=== PATIENT | female | born 1995 | race Caucasian/White ===

== ENCOUNTER 2017-09-18 18:40 | Emergency (ER) | payer OTHER, MEDICAID, SELFPAY ==
[2017-09-18 18:43] VITALS: BP 122/83; PULSE 92; RESP 14; TEMP 36.5; O2SAT 100
--- NOTE | 2017-09-18 18:46 | DI.RAD.S_ITS ---
PROCEDURE: XR ANKLE RT MIN 3V INDICATIONS: twisting injury, lateral ankle pain TECHNIQUE: 3 views of the ankle were acquired. COMPARISON: None. FINDINGS: Bones: No fractures or dislocations. Ankle mortise is normally aligned. No suspicious bony lesions. Soft tissues: No tibiotalar joint effusion. Achilles tendon appears normal. IMPRESSION: Source of lateral ankle pain is not seen. Dictated by: Candelario Scott M.D. on 09/18/2017 at 19:07 Approved by: Candelario Scott M.D. on 09/18/2017 at 19:07
--- NOTE | 2017-09-18 19:04 | ED.LOWEXIN ---
HPI - Extremity Injury (Lower) <DUKE Chairez - Last Filed: 09/18/17 23:39> General Chief Complaint: Extremity Injury, Lower Stated Complaint: RT ANKLE INJURY Time Seen by Provider: 09/18/17 19:04 History of Present Illness HPI Narrative: 22-year-old female here for complaint of pain into her right ankle for the last couple of days. She states that [place] and was walking to the restroom area when she rolled her right ankle causing pain into the lateral aspect of the right ankle. She reports some swelling to the lateral malleolus area. She denies any direct trauma to the ankle. She does report increased pain with ambulation and weight-bearing. No other injuries or concerns or complaints. MD complaint: ankle injury Related Data Home Medications Medication Instructions Recorded Confirmed Cymbalta 09/18/17 bupropion HCl [Wellbutrin XL] 300 mg PO QAM 09/18/17 09/18/17 pregabalin [Lyrica] 09/18/17 Allergies Allergy/AdvReac Type Severity Reaction Status Date / Time ibuprofen AdvReac Verified 09/18/17 18:46 Review of Systems <DUKE Chairez - Last Filed: 09/18/17 23:39> Constitutional Denies chills, Denies fatigue, Denies fever(s), Denies lethargy and Denies weakness Eyes Denies change in vision, Denies eye discharge, Denies irritation and Denies loss of vision ENT Ears, Nose, Mouth, and Throat: Denies change in voice, Denies neck pain and Denies sore throat Cardiovascular Denies dyspnea and Denies dyspnea on exertion Respiratory Denies cough, Denies dyspnea, Denies dyspnea on exertion and Denies wheezing Gastrointestinal Gastrointestinal: Denies abdominal pain, Denies change in bowel habits, Denies diarrhea, Denies nausea and Denies vomiting Genitourinary Denies hematuria, Denies flank pain, Denies urinary incontinence and Denies urinary urgency Musculoskeletal Denies neck pain Comments: Right ankle pain Integumentary/Breasts Denies pruritus, Denies erythema, Denies rash and Denies wounds Neurologic Denies confusion, Denies loss of vision and Denies weakness Psychiatric Denies anxiety, Denies confusion, Denies depression, Denies homicidal ideation and Denies suicidal ideation Endocrine Denies fatigue and Denies flushing Hematologic/Lymphatic Denies easy bruising Allergic/Immunologic Denies wheezing Exam <DUKE Chairez - Last Filed: 09/18/17 23:39> Initial Vital Signs Initial Vital Signs: Vital Signs Temperature 97.7 F 09/18/17 18:43 Pulse Rate 92 H 09/18/17 18:43 Respiratory Rate 14 09/18/17 18:43 Blood Pressure 122/83 H 09/18/17 18:43 Pulse Oximetry 100 09/18/17 18:43 Const General: cooperative and well developed Nutritional Appearance: well nourished Orientation: alert, awake, oriented x3 and not confused [facility] Mouth: oral mucosae normal and moist mucous membranes Eyes Conjunctivae: conjunctivae normal Sclera: sclerae normal Pupils: PERRL EOM: EOM intact bilaterally Resp Effort & Inspection: normal respiratory effort, able to speak in complete sentences, no respiratory distress and no use of accessory muscles Auscultation: clear to auscultation bilaterally, no rales, no rhonchi and no wheezes Cardio Rate: regular rate Rhythm: regular rhythm Heart Sounds: no click, no gallops, no murmurs and no rubs Pulses: normal peripheral pulses Skin General: no rashes or lesions noted, No jaundice and No petechiae Extrem Other: Right ankle with slight swelling to the lateral malleolus. No deformities. No ecchymosis. Distal sensation is intact. Distal range of motion is intact. Distal pulses are intact. <Dawit Ramos MD - Last Filed: 10/06/17 09:35> Initial Vital Signs Initial Vital Signs: Vital Signs Temperature 97.7 F 09/18/17 18:43 Pulse Rate 92 H 09/18/17 18:43 Respiratory Rate 14 09/18/17 18:43 Blood Pressure 122/83 H 09/18/17 18:43 Pulse Oximetry 100 09/18/17 18:43 Course <DUKE Chairez - Last Filed: 09/18/17 23:39> Orders Ordered: ED Orders 09/18/17 18:46 XR ankle RT min 3V Stat Vital Signs - 8 hr 09/18/17 18:43 09/18/17 20:25 Temperature 97.7 F Pulse Rate 92 H 92 H Respiratory Rate 14 18 Blood Pressure 122/83 H Blood Pressure [Left Arm] 118/72 Pulse Oximetry 100 97 <Dawit Ramos MD - Last Filed: 10/06/17 09:35> Orders Ordered: ED Orders 09/18/17 18:46 XR ankle RT min 3V Stat Vital Signs - 8 hr 09/18/17 18:43 09/18/17 20:25 Temperature 97.7 F Pulse Rate 92 H 92 H Respiratory Rate 14 18 Blood Pressure 122/83 H Blood Pressure [Left Arm] 118/72 Pulse Oximetry 100 97 [facility] - Extremity Injury (Lower) <DUKE Chairez - Last Filed: 09/18/17 23:39> Imaging Data ankle: Radiologist's impression: Signed Patient: TAMMY MIRANDA MR#: [id number] : 1995 Acct:[id number] Age/Sex: 22 / F Date of Service: 09/18/17 Loc: ED Accession Number: [id number] Procedure: XR ankle RT min 3V Ordering Provider: Dawit Ramos M.D. PROCEDURE: XR ANKLE RT MIN 3V INDICATIONS: twisting injury, lateral ankle pain TECHNIQUE: 3 views of the ankle were acquired. COMPARISON: None. FINDINGS: Bones: No fractures or dislocations. Ankle mortise is normally aligned. No suspicious bony lesions. Soft tissues: No tibiotalar joint effusion. Achilles tendon appears normal. IMPRESSION: Source of lateral ankle pain is not seen. Dictated by: Candelario Scott M.D. on 09/18/2017 at 19:07 MDM Narrative Medical decision making narrative: X-ray of the right ankle was obtained and was negative for any acute findings. Signs and symptoms presents as sprain to the right ankle. She is placed in a gel stirrup splint for comfort and support along with crutches for nonweightbearing. [id number] Tylenol as needed for any discomfort. Ice and elevation to help with any swelling. Follow up with primary care provider. Return emergency room for any worsening symptoms. Discharge Plan Departure Patient Disposition: Home, Self-Care Clinical Impression: Ankle sprain and strain Discharge Date/Time: 09/18/17 20:20 Interventions: ED Discharge Assessment Last Done: 09/18/17 20:46 Instructions: Ankle Sprain Activity Restrictions/Additional Instructions: X-ray the right ankle was obtained was negative for any acute fractures. Signs and symptoms presents sprain into the right ankle. You have been placed in a splint for comfort and support along with crutches for nonweightbearing use as directed. Use [id number] Tylenol as needed for any discomfort. Ice and elevation to help with swelling. Follow up with her primary care provider. Return emergency room for any worsening symptoms. Prescriptions: No Action bupropion HCl [Wellbutrin XL] 300 mg Tablet Extended Release 24 Hr 300 mg PO QAM RF: 0 pregabalin [Lyrica] 75 mg Capsule RF: 0 Cymbalta RF: 0 Referrals: [facility] [Provider Group] <Dawit Ramos MD - Last Filed: 10/06/17 09:35> Sign Out Provider Sign Out Attestation: The PA/[employer] functioned independently for the care of this pt, I was available, but not asked to participate in care. I am unable to determine appropriateness of management without personally examining the pt.
[2017-09-18 20:25] VITALS: BP 118/72; PULSE 92; RESP 18; O2SAT 97
== END 2017-09-18 20:20 | disposition home or self-care (01) ==
PROVIDERS: Emergency Provider Nurse Practitioner Family
DX: S93.401A Sprain of unspecified ligament of right ankle, initial encounter (principal); W18.43XA Slipping, tripping and stumbling without falling due to stepping from one level to another, initial encounter
CPT/HCPCS: 29540; 73610; 99282; 99283

== ENCOUNTER 2018-03-06 22:16 | Emergency (ER) | payer OTHER, MEDICAID, SELFPAY ==
[2018-03-06 22:25] VITALS: BP 124/76; PULSE 99; RESP 15; TEMP 36.6; O2SAT 100; BMI 41.1
[2018-03-06] MEDS: HYDROMORPHONE 2 MG INJ 1 MG IM (23:05)
--- NOTE | 2018-03-06 23:07 | ED_ITS ---
HPI - Abdominal Pain General Chief Complaint: Abdominal Pain Stated Complaint: Constipated (1 Week) Time Seen by Provider: 03/06/18 22:22 Source: patient Mode of arrival: ambulatory Limitations: no limitations History of Present Illness HPI narrative: Patient is a 23-year-old female with a history of constipation. She states that she has had to be disimpacted in the past she states she has not had a bowel movement approximately 1 week. Has tried enemas and suppositories at home. Does have the sensation like she wants to go the bathroom and abdominal pain. No urinary symptoms. Related Data Home Medications Medication Instructions Recorded Confirmed Cymbalta 09/18/17 bupropion HCl [Wellbutrin XL] 300 mg PO QAM 09/18/17 09/18/17 pregabalin [Lyrica] 09/18/17 Allergies Allergy/AdvReac Type Severity Reaction Status Date / Time ibuprofen AdvReac Verified 03/06/18 22:25 Review of Systems Constitutional Denies headache(s) ENT Ears, Nose, Mouth, and Throat: Denies headache(s) Cardiovascular Denies chest pain and Denies dyspnea Respiratory Denies dyspnea Gastrointestinal Gastrointestinal: Reports abdominal pain, Reports bloating, Reports constipation , Denies diarrhea, Denies nausea and Denies vomiting Genitourinary Denies dysuria and Denies pelvic pain Integumentary/Breasts Denies rash Neurologic Denies headache(s) Hematologic/Lymphatic Denies easy bleeding and Denies easy bruising PFSH Medical History Fibromyalgia (Acute) Social History Smoking Status: Never smoker Exam Initial Vital Signs Initial Vital Signs: Vital Signs Temperature 97.8 F 03/06/18 22:25 Pulse Rate 99 H 03/06/18 22:25 Respiratory Rate 15 03/06/18 22:25 Blood Pressure 124/76 03/06/18 22:25 Pulse Oximetry 100 03/06/18 22:25 Const General: cooperative, healthy appearing, comfortable, well developed, well groomed and No acute distress Orientation: alert, awake and oriented x3 HENMT Head: normal to inspection and normocephalic Resp Effort & Inspection: normal respiratory effort Auscultation: clear to auscultation bilaterally Cardio Rate: regular rate Rhythm: regular rhythm GI Inspection: non-distended Palpation: soft, No firm and tender (Generalized) Rectal Exam: visual inspection normal, normal sphincter tone, No hemorrhoids, No lesions and No mass Skin Lesions: no lesions Rashes: no rashes Neuro General: alert, awake and oriented x3 Extrem General: normal to inspection and capillary refill normal Psych Appearance: grossly normal and well kempt Course Orders Ordered: Discontinued Medications Hydromorphone HCl (Dilaudid) 1 mg IM Q4H PRN PRN Reason: Pain, Severe (7-10) Last Admin: 03/06/18 23:05 Dose: 1 mg Mineral Oil (Mineral Oil Enema) 1 each MS NOW ONE Stop: 03/06/18 23:37 Last Admin: 03/06/18 23:30 Dose: 1 each Vital Signs - 8 hr 03/06/18 22:25 03/07/18 00:52 Temperature 97.8 F Pulse Rate 99 H 90 Respiratory Rate 15 16 Blood Pressure 124/76 109/44 L Pulse Oximetry 100 99 MDM - Abdominal Pain MDM Narrative Medical decision making narrative: Patient has a relatively benign abdominal exam. Unable to manually disimpact because the stool was too high in the rectal vault. She was given a mineral oil enema. Patient was able to have a bowel movement here in the ER. She states she felt much better. We did discuss home treatment of her constipation. Will hold on further workup for now. She was given return precautions. She expressed understanding and agreement with plan. Discharge Plan Departure Patient Disposition: Home Clinical Impression: Constipation Discharge Date/Time: 03/07/18 00:58 Interventions: ED Discharge Assessment Last Done: 03/07/18 00:52 Instructions: Constipation Activity Restrictions/Additional Instructions: Recommend that you keep your appointment with your primary doctor later this week. I do recommend that you start a fiber supplement. Return to the emergency department for any new or worsening symptoms Prescriptions: No Action bupropion HCl [Wellbutrin XL] 300 mg Tablet Extended Release 24 Hr 300 mg PO QAM RF: 0 pregabalin [Lyrica] 75 mg Capsule RF: 0 Cymbalta RF: 0
[2018-03-06] MEDS: MINERAL OIL 1 EACH ENEMA PR (23:30)
--- NOTE | 2018-03-07 00:19 | PC.NURSE ---
patient reports a large BM and some relief. provider aware and no new orders at this time.
[2018-03-07 00:52] VITALS: BP 109/44; PULSE 90; RESP 16; O2SAT 99
== END 2018-03-07 00:58 | disposition home or self-care (01) ==
PROVIDERS: Emergency Provider Emergency Medicine
DX: K59.00 Constipation, unspecified (principal)
CPT/HCPCS: 96372; 99283; J1170

== ENCOUNTER 2018-05-02 14:45 | Emergency (ER) | payer OTHER, MEDICAID, SELFPAY ==
[2018-05-02 14:50] VITALS: BP 105/71; PULSE 94; RESP 15; TEMP 36.2; O2SAT 97; BMI 40.2
== END 2018-05-02 15:35 | disposition left against medical advice (07) ==
PROVIDERS: Emergency Provider Emergency Medicine
DX: R10.9 Unspecified abdominal pain (principal)
CPT/HCPCS: 99281; 99282

== ENCOUNTER 2019-12-07 14:27 | Emergency (ER) | payer OTHER, MEDICAID, SELFPAY ==
--- NOTE | 2019-12-07 14:46 | ED.FEMALEGU ---
HPI - Female Genitourinary General Chief complaint: Urogenital-Female Stated complaint: UTI COUPLE DAYS-1 WEEK Time Seen by Provider: 12/07/19 14:30 Source: patient and family Mode of arrival: Ambulatory Limitations: no limitations History of Present Illness HPI Narrative: 24-year-old female former smoker with noncontributory medical history presents with her family in the chief complaint of multiple days of urinary frequency, urgency, burning with urination. She states the symptoms are consistent with prior episodes of urinary tract infection. She denies any vaginal bleeding or discharge. She denies any fever, chills, nausea, vomiting or back pain. MD Complaint: dysuria and UTI Onset (ago): day(s) Female Urogenital Radiation: Suprapubic Severity: moderate Quality: Aching Duration: constant Exacerbating factors: urination Urinary symptoms: Dysuria, Foul Smelling Urine, Frequency and Urgency Sexual activity: No Patient : No Related Data Home Medications Medication Instructions Recorded Confirmed Cymbalta 09/18/17 bupropion HCl [Wellbutrin XL] 300 mg PO QAM 09/18/17 09/18/17 pregabalin [Lyrica] 09/18/17 Previous Rx's Medication Instructions Recorded sulfamethoxazole-trimethoprim 1 tab PO BID 7 Days #14 tab 12/07/19 [Bactrim DS] Allergies Allergy/AdvReac Type Severity Reaction Status Date / Time ibuprofen AdvReac Verified 12/07/19 14:54 Review of Systems Constitutional Constitutional: Denies chills, Denies fatigue, Denies fever(s), Denies frequent falls, Denies lethargy and Denies weakness Eyes Eyes: Denies change in vision, Denies eye discharge, Denies irritation and Denies loss of vision ENT Ears, Nose, Mouth, and Throat: Denies change in voice, Denies dizziness, Denies neck pain, Denies sore throat and Denies throat swelling Cardiovascular Cardiovascular: Denies chest pain, Denies irregular heart rhythm, Denies lightheadedness, Denies palpitations, Denies dyspnea, Denies dyspnea on exertion and Denies orthopnea Respiratory Respiratory: Denies cough, Denies dyspnea, Denies dyspnea on exertion and Denies wheezing Gastrointestinal Gastrointestinal: Denies abdominal pain, Denies change in bowel habits, Denies diarrhea, Denies nausea and Denies vomiting Genitourinary Genitourinary: Reports dysuria Genitourinary: Reports dysuria Musculoskeletal Musculoskeletal: Denies neck pain and Denies numbness Integumentary/Breasts Skin/Breast: Denies pruritus, Denies erythema, Denies rash and Denies wounds Neurologic Neurologic: Denies behavioral changes, Denies confusion, Denies dizziness, Denies frequent falls, Denies loss of vision, Denies numbness and Denies weakness Psychiatric Psychiatric: Denies anxiety, Denies behavioral changes, Denies confusion, Denies depression, Denies homicidal ideation and Denies suicidal ideation Endocrine Endocrine: Denies fatigue, Denies flushing and Denies palpitations Hematologic/Lymphatic Hematologic/Lymphatic: Denies easy bruising Allergic/Immunologic Allergic/Immunologic: Denies urticaria, Denies throat swelling and Denies wheezing Patient History Medical History Fibromyalgia (Acute) alcohol intake frequency: holidays/special occasions only Substance Use Type: does not use Exam Narrative Exam Narrative: GENERAL: [24] year old patient appears stated age. Well-nourished, well-developed patient, in mild distress. HEAD: Atraumatic. Normocephalic. EYES: Pupils equal round and reactive. Extraocular motions intact. No scleral icterus. No injection or drainage. ENT: Nose without bleeding, purulent drainage. Throat without erythema, tonsillar hypertrophy or exudate. Airway patent. NECK: Trachea midline. Non tender CARDIOVASCULAR: Regular rate and rhythm without murmurs, gallops, or rubs. RESPIRATORY: Clear to auscultation. Breath sounds equal bilaterally. No wheezes, rales, or rhonchi. GASTROINTESTINAL: Abdomen soft, non-tender, nondistended. EXTREMITIES: No edema or joint tenderness. BACK: Nontender without deformity or crepitance. No flank tenderness. NEURO: AOx3. SKIN: No rash or erythema of visible areas Initial Vital Signs Initial Vital Signs: Vital Signs Temperature 98.1 F 12/07/19 14:50 Pulse Rate 92 H 12/07/19 14:50 Respiratory Rate 16 12/07/19 14:50 Blood Pressure 119/76 12/07/19 14:50 Pulse Oximetry 96 12/07/19 14:50 Course Orders Ordered: ED Orders 12/07/19 14:35 Urine Culture Stat Urine Microscopic Stat Vital Signs Vital signs: Vital Signs - 8 hr 12/07/19 14:50 Temperature 98.1 F Pulse Rate 92 H Respiratory Rate 16 Blood Pressure 119/76 Pulse Oximetry 96 MDM - Female Genitourinary Lab Data Labs: Lab Results 12/07/19 Range/Units 14:35 Urine RBC 0-1/hpf (0-5/HPF) Urine WBC 10-30/hpf H (0-5/HPF) Ur Squamous Epith Cells 0-1 /hpf (0-5/HPF) Urine Bacteria Many (>30) H (None) Ur Culture Indicated? Specimen cultured Point of Care Testing Test Results Negative Urine Dip Bedside Urine Glucose Negative Bedside Urine Bilirubin - Negative Bedside Urine Ketone - Negative Urine Specific [place] 1.015 Bedside Urine Occult Blood +/- Bedside Urine pH 6.0 Bedside Urine Protein - Negative Bedside Urine Urobilinogen - Negative Bedside Urine Nitrite - Negative Bedside Urine Leukocytes ++ 125 Esterase Discharge Plan Departure Patient Disposition: Home Clinical Impression: Urinary tract infection Qualifiers: Urinary tract infection type: acute cystitis Hematuria presence: with hematuria Qualified Code(s): N30.01 - Acute cystitis with hematuria Instructions: DI for Urinary Tract Infection (UTI) Activity Restrictions/Additional Instructions: *You have been diagnosed with [acute UTI ] *What to do: *Take medications as directed *Follow up with your primary care provider in 2-3 days, call for an appointment. Let them know you were seen in the Emergency Department and that we ask that you be seen in follow up *Return to ER if you should have any new, worsening or concerning symptoms Prescriptions: New sulfamethoxazole-trimethoprim [Bactrim DS] 800-160 mg tablet 1 tab PO BID 7 Days Qty: 14 RF: 0 No Action bupropion HCl [Wellbutrin XL] 300 mg Tablet Extended Release 24 Hr 300 mg PO QAM RF: 0 pregabalin [Lyrica] 75 mg Capsule RF: 0 Cymbalta RF: 0
[2019-12-07 14:50] VITALS: BP 119/76; PULSE 92; RESP 16; TEMP 36.7; O2SAT 96; BMI 47.5
[2019-12-07 15:07] LABS: Bacteria Urine Many (>30); Culture Indicated Urine Specimen Cultured; RBC Urine 0-1/HPF (0-5/HPF); Squamous Epithelial Cell Urine 0-1 /HPF (0-5/HPF); WBC Urine 10-30/HPF (0-5/HPF)
== END 2019-12-07 15:30 | disposition home or self-care (01) ==
PROVIDERS: Emergency Provider Emergency Medicine
DX: N30.01 Acute cystitis with hematuria (principal)
CPT/HCPCS: 81003; 81015; 81025; 87077; 87086; 87186; 99282

== ENCOUNTER 2019-12-21 23:26 | Emergency (ER) | payer OTHER, MEDICAID, SELFPAY ==
[2019-12-21 23:42] VITALS: BP 121/71; PULSE 95; RESP 18; TEMP 37; O2SAT 97; BMI 47.5
[2019-12-21 23:57] LABS: RBC Urine None Seen (0-5/HPF)
[2019-12-22] MEDS: TRIMETH/SULFA 160/800 (DS) TABLET 1 TAB PO
--- NOTE | 2019-12-22 00:01 | ED_ITS ---
HPI - Female Genitourinary General Chief complaint: Urogenital-Female Stated complaint: states UTI Time Seen by Provider: 12/21/19 23:32 Source: patient Mode of arrival: Ambulatory Limitations: no limitations History of Present Illness HPI Narrative: 24-year-old female smoker with noncontributory history presents with a chief complaint of urinary frequency, urgency and burning over the past day or 2. She denies systemic findings such as back pain, fever, chills nor nausea or vomiting. She denies any vaginal bleeding or discharge and states she is not . She denies other symptoms such as chest pain, shortness of breath or cough. MD Complaint: dysuria and UTI Onset (ago): day(s) Location: suprapubic Severity: mild Quality: Burning Duration: constant Relieving factors: none Exacerbating factors: urination Urinary symptoms: Dysuria, Frequency and Urgency Patient : No Associated symptoms: denies other symptoms Related Data Home Medications Medication Instructions Recorded Confirmed Cymbalta 09/18/17 bupropion HCl [Wellbutrin XL] 300 mg PO QAM 09/18/17 09/18/17 pregabalin [Lyrica] 09/18/17 Previous Rx's Medication Instructions Recorded fluconazole 150 mg PO Q3D #2 tab 12/21/19 sulfamethoxazole-trimethoprim 1 tab PO BID 5 Days #10 tab 12/21/19 [Bactrim DS] Allergies Allergy/AdvReac Type Severity Reaction Status Date / Time ibuprofen AdvReac Verified 12/07/19 14:54 Review of Systems Constitutional Constitutional: Denies chills, Denies fatigue, Denies fever(s), Denies frequent falls, Denies lethargy and Denies weakness Eyes Eyes: Denies change in vision, Denies eye discharge, Denies irritation and Denies loss of vision ENT Ears, Nose, Mouth, and Throat: Denies change in voice, Denies dizziness, Denies neck pain, Denies sore throat and Denies throat swelling Cardiovascular Cardiovascular: Denies chest pain, Denies irregular heart rhythm, Denies lightheadedness, Denies palpitations, Denies dyspnea, Denies dyspnea on exertion and Denies orthopnea Respiratory Respiratory: Denies cough, Denies dyspnea, Denies dyspnea on exertion and Denies wheezing Gastrointestinal Gastrointestinal: Denies abdominal pain, Denies change in bowel habits, Denies diarrhea, Denies nausea and Denies vomiting Genitourinary Genitourinary: Reports as per HPI and Reports dysuria Genitourinary: Reports as per HPI and Reports dysuria Musculoskeletal Musculoskeletal: Denies neck pain and Denies numbness Integumentary/Breasts Skin/Breast: Denies pruritus, Denies erythema, Denies rash and Denies wounds Neurologic Neurologic: Denies behavioral changes, Denies confusion, Denies dizziness, Denies frequent falls, Denies loss of vision, Denies numbness and Denies weakness Psychiatric Psychiatric: Denies anxiety, Denies behavioral changes, Denies confusion, Denies depression, Denies homicidal ideation and Denies suicidal ideation Endocrine Endocrine: Denies fatigue, Denies flushing and Denies palpitations Hematologic/Lymphatic Hematologic/Lymphatic: Denies easy bruising Allergic/Immunologic Allergic/Immunologic: Denies urticaria, Denies throat swelling and Denies wheezing Patient History Medical History Fibromyalgia (Acute) alcohol intake frequency: holidays/special occasions only Substance Use Type: does not use Exam Narrative Exam Narrative: GEN: AOx3 and in mild distress EYES: Pupils are equal, round, and reactive to light and accommodation. Extraoccular muscles are intact bilaterally. There is no subconjunctival hemorrhage or exudate. CHEST: Lungs are clear to auscultation bilaterally and free of wheezes, rales, or rhonchi. Heart rate is regular rhythm, there are no murmurs, clicks, rubs, or gallops. There is no chest wall tenderness. ABD: Abdomen is soft and nontender. There is no guarding or rebound. Bowel sounds are normal in all 4 quadrants. There is no mass or organomegaly. EXT: Full painless ROM of all extremities with no loss of sensation or strength. SKIN: Warm, pink, and dry. No erythema or rash Initial Vital Signs Initial Vital Signs: Vital Signs Temperature 98.6 F 12/21/19 23:42 Pulse Rate 95 H 12/21/19 23:42 Respiratory Rate 18 12/21/19 23:42 Blood Pressure 121/71 12/21/19 23:42 Pulse Oximetry 97 10 23:42 Course Orders Ordered: ED Orders 12/21/19 23:30 Urine Culture Stat Urine Microscopic Stat Discontinued Medications Trimethoprim/Sulfamethoxazole (Bactrim Ds) 1 tab PO NOW ONE Stop: 12/21/19 23:55 Last Admin: 12/22/19 00:00 Dose: 1 tab Documented by: LISET Vital Signs Vital signs: Vital Signs - 8 hr 12/21/19 23:42 Temperature 98.6 F Pulse Rate 95 H Respiratory Rate 18 Blood Pressure 121/71 Pulse Oximetry 97 MDM - Female Genitourinary Lab Data Labs: Lab Results 12/21/19 Range/Units 23:30 Urine RBC None seen (0-5/HPF) Urine WBC 10-30/hpf H (0-5/HPF) Ur Squamous Epith Cells 1-5 /hpf (0-5/HPF) Urine Bacteria Many (>30) H (None) Ur Culture Indicated? Specimen cultured Point of Care Testing Test Results Negative Urine Dip Bedside Urine Glucose Negative Bedside Urine Bilirubin - Negative Bedside Urine Ketone - Negative Urine Specific [place] 1.025 Bedside Urine Occult Blood - Negative Bedside Urine pH 6.0 Bedside Urine Protein - Negative Bedside Urine Urobilinogen - Negative Bedside Urine Nitrite - Negative Bedside Urine Leukocytes ++ 125 Esterase Discharge Plan Departure Patient Disposition: Home Clinical Impression: Urinary tract infection Qualifiers: Urinary tract infection type: acute cystitis Hematuria presence: without hematuria Qualified Code(s): N30.00 - Acute cystitis without hematuria Instructions: DI for Urinary Tract Infection (UTI) Activity Restrictions/Additional Instructions: *You have been diagnosed with [acute UTI] *What to do: *Take medications as directed *Follow up with your primary care provider in 2-3 days, call for an appointment. Let them know you were seen in the Emergency Department and that we ask that you be seen in follow up *Return to ER if you should have any new, worsening or concerning symptoms Prescriptions: New fluconazole 150 mg tablet 150 mg PO Q3D Qty: 2 RF: 0 sulfamethoxazole-trimethoprim [Bactrim DS] 800-160 mg tablet 1 tab PO BID 5 Days Qty: 10 RF: 0 No Action bupropion HCl [Wellbutrin XL] 300 mg Tablet Extended Release 24 Hr 300 mg PO QAM RF: 0 pregabalin [Lyrica] 75 mg Capsule RF: 0 Cymbalta RF: 0 Referrals: [facility] [Outside]
[2019-12-22 00:02] LABS: Bacteria Urine Many (>30); Culture Indicated Urine Specimen Cultured; Squamous Epithelial Cell Urine 1-5 /HPF (0-5/HPF); WBC Urine 10-30/HPF (0-5/HPF)
== END 2019-12-22 00:11 | disposition home or self-care (01) ==
PROVIDERS: Emergency Provider Emergency Medicine
DX: N30.00 Acute cystitis without hematuria (principal)
CPT/HCPCS: 81003; 81015; 81025; 87077; 87086; 87186; 99283

== ENCOUNTER 2020-02-07 16:28 | Emergency (ER) | payer OTHER, MEDICAID, SELFPAY ==
[2020-02-07] VITALS (7 sets, daily range): BP systolic 110–130; BP diastolic 56–71; PULSE 80–93; RESP 17–24; TEMP 36.4; O2SAT 98–100; BMI 47.8
--- NOTE | 2020-02-07 17:26 | DI.US.S_ITS ---
PROCEDURE: US OB <= 14 WEEKS FETUS INDICATIONS: BLEEDING OUTSIDE/PRIOR DATING DATA: Last menstrual period (LMP): 11/28/2019 . LMP-based estimated date of delivery (MESERET): 09/03/2020 . First dating scan (date and location): 02/07/2020 . Estimated date of delivery (MESERET) from first dating scan: 09/29/2020 . TECHNIQUE: Real-time scanning was performed of the fetus and maternal pelvic organs, with image documentation. Endovaginal scanning was also performed to better visualize the fetus and maternal ovaries. COMPARISON: None. FINDINGS: Embryo: Single live intrauterine . There is no subchorionic hemorrhage. heart rate is 113 beats per minute. [place]-rump length is 6 millimeters corresponding with 6 weeks 3 days. Measurement variability in dating: +/- 4 weeks by LMP, +/- 7 days by mean sac diameter (use before 6 weeks gestation if crown-rump length not able to be measured), +/- 5 days by crown-rump length (up to 8 weeks 6 days gestation), +/- 7 days by crown-rump length (up to 13 weeks 6 days gestation). Maternal organs: The right ovary has a normal appearance. The left ovary is not well seen. IMPRESSION: Single live intrauterine with a composite gestational age of 6 weeks 3 days. Dictated by: Scott Chavarria M.D. on 02/07/2020 at 20:18 Approved by: Scott Chavarria M.D. on 02/07/2020 at 20:21
[2020-02-07] MEDS: SODIUM CHLORIDE 0.9% 1,000 ML 1000 ML IV (17:28)
[2020-02-07 17:31] LABS: Add Manual Diff / Slide Review NO; Basophils Absolute Auto 100 /uL (0-100); Basophils Percent Auto 0.8 % (0-2); Eosinophils Absolute Auto 100 /uL (0-450); Eosinophils Percent Auto 0.9 % (2-4); Hematocrit 36.8 % (36-46); Hemoglobin 12.1 g/dL (12.0-16.0); Lymphocytes Absolute Auto 2600 /uL (1100-4500); Mean Corpuscular Hemoglobin 31.3 PG (26-34); Mean Corpuscular Volume 95.1 fL (80-100); Monocytes Absolute Auto 600 /uL (0-900); Neutrophils Absolute Auto 4700 /uL (1500-7000); Neutrophils Percent Auto 58.3 % (50-75); Platelet Count 303 X10^3/uL (150-400); Red Blood Cell Count 3.87 X10^6/uL (4.0-5.2); Red Cell Distribution Width 13.6 % (11.6-14.8)
--- NOTE | 2020-02-07 17:39 | ED_ITS ---
HPI - General Chief complaint: Vaginal Bleeding Stated complaint: CRAMPING AND BLEEDING JUST FOUND OUT Time Seen by Provider: 02/07/20 17:26 Source: patient Mode of arrival: Ambulatory Limitations: no limitations History of Present Illness HPI Narrative: Patient is a 25-year-old female who is presenting with vaginal bleeding. She thinks that she may be about 10 weeks . She started having vaginal bleeding this morning and some cramping. She denies any dizziness or lightheadedness. She says her last menstrual period was in November. She has not yet had an ultrasound. She is feeling nauseated no vomiting. Related Data Home Medications Medication Instructions Recorded Confirmed bupropion HCl [Wellbutrin XL] 300 mg PO QAM 09/18/17 02/01/20 Previous Rx's Medication Instructions Recorded ondansetron 4 mg PO Q6HR PRN #10 tab 02/07/20 Allergies Allergy/AdvReac Type Severity Reaction Status Date / Time nickel AdvReac Rash Verified 02/07/20 16:59 Review of Systems Review of Systems Narrative: GENERAL: Denies chills, fatigue, malaise, fever, sweats, travel HEENT: Denies sinus pain, ear pain, sore throat, difficulty swallowing, neck pain RESPIRATORY: Denies dyspnea, cough, wheezing, hemoptysis, sputum. CARDIOVASCULAR: Denies chest pain, palpitations, orthopnea, edema GASTROINTESTINAL: Denies nausea, vomiting, abdominal pain, diarrhea, constipation, melena. 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 MUSCULOSKELETAL: Denies weakness, joint pain, or bony pain SKIN: No rash, no erythema, no pruritus NEUROLOGIC: Denies weakness, dizziness, headache, numbness, change in speech, confusion PSYCHIATRIC: No concerning psychosocial issues. 12 point review of systems is negative except for those stated above and HPI Exam Initial Vital Signs Initial Vital Signs: Vital Signs Temperature 97.5 F L 02/07/20 16:49 Pulse Rate 93 H 02/07/20 16:49 Respiratory Rate 18 02/07/20 16:49 Blood Pressure 130/63 02/07/20 16:49 Pulse Oximetry 98 02/07/20 16:49 GENERAL: Overweight female appears in [id number] discomfort and in no acute distress. HEENT: Head atraumatic,EOMI, pupils reactive, face symmetric, moist mucous membranes CARDIOVASCULAR: Regular rate and rhythm without murmurs, rubs or gallops. RESPIRATORY: Breath sounds equal bilaterally, no wheezes rales or rhonchi. ABDOMEN: Soft, nontender. Normoactive bowel sounds all 4 quadrants. No guarding or rebound. EXTREMITIES: Normal range of motion, no clubbing or edema. Neurovascularly intact NEUROLOGICAL: Alert and oriented x4.Normal gait and speech. SKIN: Warm, dry, no laceration, no petechiae, no rashes or lesions. Course Orders Ordered: Discontinued Medications Sodium Chloride (Normal Saline 0.9%) 1,000 mls @ 1,000 mls/hr IV BOLUS ONE Stop: 02/07/20 17:58 Last Infusion: 02/07/20 19:07 Dose: 0 mls/hr Documented by: Admin: 02/07/20 17:28 Dose: 1,000 mls/hr Documented by: ARJUN Ondansetron HCl (Ondansetron 4 Mg/2 Ml Inj) 4 mg IV NOW ONE Stop: 02/07/20 17:51 Last Admin: 02/07/20 20:08 Dose: Not Given Documented by: MMINOR Vital Signs Vital signs: Vital Signs - 8 hr 02/07/20 16:49 02/07/20 17:42 02/07/20 17:43 Temperature 97.5 F L Pulse Rate 93 H 81 80 Respiratory Rate 18 20 17 Blood Pressure 130/63 110/56 L Pulse Oximetry 98 100 100 02/07/20 18:00 02/07/20 18:41 02/07/20 18:43 Temperature Pulse Rate 85 85 87 Respiratory Rate 24 22 Blood Pressure 117/71 114/60 Pulse Oximetry 100 99 MDM - OB/Uterine Contractions Lab Data Attestation: I reviewed the patient's lab results. Result diagrams: 02/07/20 17:15 02/07/20 17:15 Labs: Lab Results 02/07/20 02/07/20 02/07/20 Range/Units 17:15 17:15 17:15 WBC 8.0 (4.5-11.0) X10^3/uL RBC 3.87 L (4.0-5.2) X10^6/uL Hgb 12.1 (12.0-16.0) g/dL Hct 36.8 (36-46) % MCV 95.1 (80-100) fL MCH 31.3 (26-34) PG MCHC 33.0 (30-36) % RDW 13.6 (11.6-14.8) % Plt Count 303 (150-400) X10^3/uL Neut % (Auto) 58.3 (50-75) % Lymph % (Auto) 32.0 (25-40) % [place] % (Auto) 8.0 (3-14) % Eos % (Auto) 0.9 L (2-4) % Baso % (Auto) 0.8 (0-2) % Neut # (Auto) 4700 (8398-9874) /uL Lymph # (Auto) 2600 (1783-9670) /uL [place] # (Auto) 600 (0-900) /uL Eos # (Auto) 100 (0-450) /uL Baso # (Auto) 100 (0-100) /uL Sodium 137 (137-145) mmol/L Potassium 4.0 (3.4-5.1) mmol/L Chloride 101 (98-107) mmol/L Carbon Dioxide 29 (22-32) mmol/L BUN 7 (7-17) mg/dL Creatinine 0.57 (0.52-1.04) mg/dL Estimated GFR > 60.0 (>60) mL/min BUN/Creatinine Ratio 12.3 (6-22) Glucose 91 (70-100) mg/dL Calcium 9.3 (8.4-10.2) mg/dL Total Bilirubin 0.3 (0.2-1.3) mg/dL AST 43 H (14-36) IU/L ALT 55 H (<35) IU/L Alkaline Phosphatase 66 (38-126) U/L Total Protein 8.1 (6.3-8.2) g/dL Albumin 4.6 (3.5-5.0) g/dL Globulin 3.5 (1.7-4.1) g/dL Albumin/Globulin Ratio 1.3 (1.0-2.8) HCG, Quant 48501 mIU/mL Point of Care Testing Test Results Positive Urine Dip Bedside Urine Glucose Negative Bedside Urine Bilirubin - Negative Bedside Urine Ketone - Negative Urine Specific [place] 1.015 Bedside Urine Occult Blood - Negative Bedside Urine pH 6 Bedside Urine Protein - Negative Bedside Urine Urobilinogen - Negative Bedside Urine Nitrite - Negative Bedside Urine Leukocytes - Negative Esterase Imaging Data US - LATEX THREAD MACHINE OPERATOR: Radiologist's Impression: PROCEDURE: US OB <= 14 WEEKS FETUS INDICATIONS: BLEEDING OUTSIDE/PRIOR DATING DATA: Last menstrual period (LMP): 11/28/2019 . LMP-based estimated date of delivery (MESERET): 09/03/2020 . First dating scan (date and location): 02/07/2020 . Estimated date of delivery (MESERET) from first dating scan: 09/29/2020 . TECHNIQUE: Real-time scanning was performed of the fetus and maternal pelvic organs, with image documentation. Endovaginal scanning was also performed to better visualize the fetus and maternal ovaries. COMPARISON: None. FINDINGS: Embryo: Single live intrauterine . There is no subchorionic hemorrhage. heart rate is 113 beats per minute. [place]-rump length is 6 millimeters corresponding with 6 weeks 3 days. Measurement variability in dating: +/- 4 weeks by LMP, +/- 7 days by mean sac diameter (use before 6 weeks gestation if crown-rump length not able to be measured), +/- 5 days by crown-rump length (up to 8 weeks 6 days gestation), +/- 7 days by crown-rump length (up to 13 weeks 6 days gestation). Maternal organs: The right ovary has a normal appearance. The left ovary is not well seen. IMPRESSION: Single live intrauterine with a composite gestational age of 6 weeks 3 days. Dictated by: Scott Chavarria M.D. on 02/07/2020 at 20:18 Approved by: Scott Chavarria M.D. on 02/07/2020 at 20:21 [facility] Narrative Medical decision making narrative: Patient ultrasound and hCG are overall reassuring however I discussed with her she needs repeat hCG and OB follow-up. I discussed all findings with the patient and spouse, Education has been performed regarding treatment plan, diagnosis, warning signs and symptoms and all concerns have been addressed. Verbally agree with and understood all of the above. Discharge Plan Departure Patient Disposition: Home Clinical Impression: Threatened in early Instructions: Threatened Miscarriage Activity Restrictions/Additional Instructions: HCG 89227 *You have been diagnosed with threatened *What to do: You do need to have her hCG rechecked in 48 hours it needs to be going up. At this time recommend pelvic rest-nothing in or out of vagina in till bleeding stopping were evaluated by OBGYN *Continue to take medications as directed Zofran 4 mg every 8 hours *Follow up with your primary care provider in 2-3 days *Return to ER if you should have increasing pain, increasing bleeding more than 1 pad an hour or any new, worsening or concerning symptoms Prescriptions: New ondansetron 4 mg tablet,disintegrating 4 mg PO Q6HR PRN (Reason: nausea and vomiting) Qty: 10 RF: 0 No Action bupropion HCl [Wellbutrin XL] 300 mg Tablet Extended Release 24 Hr 300 mg PO QAM RF: 0
[2020-02-07 17:45] LABS: Alanine Aminotransferase 55 IU/L (<35); Albumin 4.6 g/dL (3.5-5.0); Albumin Globulin Ratio 1.3 (1.0-2.8); Alkaline Phosphatase 66 U/L (38-126); Aspartate Aminotransferase 43 IU/L (14-36); BUN Creatinine Ratio 12.3 (6-22); Bilirubin Total 0.3 mg/dL (0.2-1.3); Blood Urea Nitrogen 7 mg/dL (7-17); Calcium 9.3 mg/dL (8.4-10.2); Carbon Dioxide 29 mmol/L (22-32); Chloride 101 mmol/L (98-107); Estimated Glomerular Filt Rate > 60.0 mL/min (>60); Globulin 3.5 g/dL (1.7-4.1); Glucose 91 mg/dL (70-100); HEMOLYSIS < 15 (0-50); Sodium 137 mmol/L (137-145); Total Protein 8.1 g/dL (6.3-8.2)
[2020-02-07 18:33] LABS: HCG Quantitative /Beta subunit 38510 mIU/mL
== END 2020-02-07 19:21 | disposition home or self-care (01) ==
PROVIDERS: Emergency Provider Emergency Medicine
DX: O20.0 Threatened abortion (principal); Z3A.10 10 weeks gestation of pregnancy
CPT/HCPCS: 36415; 76801; 76817; 80053; 81003; 81025; 84702; 85025; 96360; 96361; 99283; 99284

== ENCOUNTER 2020-03-14 10:47 | Emergency (ER) | payer OTHER, MEDICAID, SELFPAY ==
[2020-03-14 11:10] VITALS: BP 122/72; PULSE 86; RESP 14; TEMP 36.2; O2SAT 100; BMI 46.0
--- NOTE | 2020-03-14 11:23 | ED.FALL ---
HPI - Fall <DUKE Enrique - Last Filed: 03/14/20 15:49> General Chief Complaint: Fall Stated Complaint: fell on face in her bathroom Time Seen by Provider: 03/14/20 11:09 Source: patient Mode of arrival: Ambulatory History of Present Illness HPI Narrative: 25yo female with a history of fibromyalgia, who is currently 10 weeks , presents to the ED for R sided facial pain. Patient states ?I have been very sleep deprived ?she states she was sitting on the toilet this morning when she fell asleep and hit her face against the door frame. She denies any syncope, is not taking any blood thinners. She denies any vomiting or neck pain. She was able to get up after the fall, she reports her right cheek had significant immediate swelling and pain. She denies any vision changes, cough, shortness of breath, dizziness, or any other concerns. She states she took Tylenol and ibuprofen this morning. Patient was counseled that ibuprofen is not recommended in . Related Data Home Medications Medication Instructions Recorded Confirmed bupropion HCl [Wellbutrin XL] 300 mg PO QAM 09/18/17 02/01/20 Previous Rx's Medication Instructions Recorded ondansetron 4 mg PO Q6HR PRN #10 tab 02/07/20 Allergies Allergy/AdvReac Type Severity Reaction Status Date / Time nickel AdvReac Rash Verified 03/14/20 11:12 Review of Systems <DUKE Enrique - Last Filed: 03/14/20 15:49> Review of Systems Narrative: REVIEW OF SYSTEMS: GENERAL: Denies fever. HENT: No head trauma. CARDIOVASCULAR: No chest pain. RESPIRATORY: No cough. GASTROINTESTINAL: No nausea or vomiting. GENITOURINARY: No flank pain. MUSCULOSKELETAL: Complains of right facial pain, see HPI. INTEGUMENTARY: No rash. Patient History <DUKE Enrique - Last Filed: 03/14/20 15:49> Medical History Fibromyalgia Fibromyalgia Social History Smoking Status: Former smoker Smoking Status: Former smoker alcohol intake frequency: holidays/special occasions only Substance Use Type: does not use Exam <DUKE Enrique - Last Filed: 03/14/20 15:49> Initial Vital Signs Initial Vital Signs: Vital Signs Temperature 97.1 F L 03/14/20 11:10 Pulse Rate 86 03/14/20 11:10 Respiratory Rate 14 03/14/20 11:10 Blood Pressure 122/72 03/14/20 11:10 Pulse Oximetry 100 03/14/20 11:10 PHYSICAL EXAMINATION: GENERAL: Awake and alert, answers questions probably. HENT: Normocephalic, atraumatic. EYES: Symmetrical, sclera white, no periorbital swelling. NECK: No tenderness with palpation.. CARDIOVASCULAR: Regular rate. RESPIRATORY: Normal respiratory rate, trachea midline, airway patent. No stridor, nasal flaring or accessory muscle use. MUSCULOSKELETAL: Approximately 5 cm of ecchymosis noted over right zygomatic process. No tenderness to superior inferior zygomatic bone, some tenderness with direct pressure on the tip of bone. No pain palpation of orbital or nasal bones. Normal gait and coordination. Equal tone and mass bilaterally. No spinal tenderness or deformities. EXTREMITIES: CMS intact. No pedal edema. SKIN: Warm, dry, soft, appropriate color for ethnicity. No lesions, rashes, or wounds. NEURO: Alert and Oriented X 3. No sensory deficits. PSYCH: Appropriate affect and mood. <Rene Estrada DO - Last Filed: 03/14/20 18:26> Initial Vital Signs Initial Vital Signs: Vital Signs Temperature 97.1 F L 03/14/20 11:10 Pulse Rate 86 03/14/20 11:10 Respiratory Rate 14 03/14/20 11:10 Blood Pressure 122/72 03/14/20 11:10 Pulse Oximetry 100 03/14/20 11:10 Scores <SATISH EnriqueP - Last Filed: 03/14/20 15:49> Nexus Score for C-Spine Focal Neurologic deficit present: No Midline spinal tenderness present: No Altered level of conciousness present: No Intoxication present: No Distracting Injury Present: No Nexus Criteria for C-spine: 0 Course <DUKE Enrique - Last Filed: 03/14/20 15:49> Course Course Narrative: Ice pack applied. Vital Signs Vital signs: Vital Signs - 8 hr 03/14/20 11:10 Temperature 97.1 F L Pulse Rate 86 Respiratory Rate 14 Blood Pressure 122/72 Pulse Oximetry 100 <Rene Estrada DO - Last Filed: 03/14/20 18:26> Vital Signs Vital signs: Vital Signs - 8 hr 03/14/20 11:10 Temperature 97.1 F L Pulse Rate 86 Respiratory Rate 14 Blood Pressure 122/72 Pulse Oximetry 100 [facility] - Fall <DUKE Enrique - Last Filed: 03/14/20 15:49> Medical Records Attestation: I reviewed the patient's medical records. Lab Data Attestation: I reviewed the patient's lab results. [facility] Narrative Medical decision making narrative: History and examination concerning for hematoma. Less likely fracture due to minor tenderness with palpation to zygomatic bone and no tenderness to superior or inferior parts of zygomatic bone. I discussed the risks and benefits of a CT face with patient, as patient is , we discussed radiation exposure. She declined CT at this time. She was encouraged to apply ice and take Tylenol for pain. Nexus score of 0, denies any neck pain. No significant concerning signs that would suggest severe injury such as neurological changes. No vomiting or syncope. Return precautions given for new or worsening symptoms. She agreed to plan of care verbalized understanding. Discharge Plan Departure Patient Disposition: Home Clinical Impression: Facial hematoma Qualifiers: Encounter type: initial encounter Qualified Code(s): S00.83XA - Contusion of other part of head, initial encounter Instructions: DI for Hematoma (Bruise), How to Prevent Falls Activity Restrictions/Additional Instructions: Thank you for entrusting me with your care today. As discussed, you have a hematoma on your right cheek bone. The skin around your cheek and eye will continue to increase in color and become more bruised. It is unlikely that you have a fracture. Please apply ice as much as possible, take Tylenol as needed for pain. Follow up with your primary care provider in 1-2 weeks for further evaluation if symptoms continue. Return emergency department for any new or worsening symptoms such as severe headache, vision changes, uncontrollable vomiting, or any other concerns. Prescriptions: No Action ondansetron 4 mg tablet,disintegrating 4 mg PO Q6HR PRN (Reason: nausea and vomiting) Qty: 10 RF: 0 bupropion HCl [Wellbutrin XL] 300 mg Tablet Extended Release 24 Hr 300 mg PO QAM RF: 0 <Rene Estrada DO - Last Filed: 03/14/20 18:26> Cosign ED Attending Cosignature Attestation: I was immediately available in the department for consultation. This documentation has been reviewed and I agree with assessment and plan. Supervised by Rene Estrada DO
--- NOTE | 2020-03-14 11:31 | PC.NURSE ---
contusion on right side face.
== END 2020-03-14 11:33 | disposition home or self-care (01) ==
PROVIDERS: Emergency Provider Nurse Practitioner
DX: S00.83XA Contusion of other part of head, initial encounter (principal); W19.XXXA Unspecified fall, initial encounter; M79.7 Fibromyalgia; Z3A.10 10 weeks gestation of pregnancy
CPT/HCPCS: 99281

== ENCOUNTER 2021-07-31 19:28 | Emergency (ER) | payer OTHER, MEDICAID, SELFPAY ==
[2021-07-31 19:42] VITALS: BP 129/58; PULSE 83; RESP 16; TEMP 36.1; O2SAT 98; BMI 51.2
== END 2021-07-31 20:20 | disposition left against medical advice (07) ==
LOC: ED 19:33
PROVIDERS: Emergency Provider Emergency Medicine
CPT/HCPCS: 99281

== ENCOUNTER 2021-08-12 08:45 | Emergency (ER) | payer OTHER, MEDICAID, SELFPAY ==
[2021-08-12 09:00] VITALS: BP 132/61; PULSE 95; RESP 22; TEMP 36.4; O2SAT 99; BMI 49.9
--- NOTE | 2021-08-12 09:24 | DI.RAD.S_ITS ---
PROCEDURE: XR CHEST 1V INDICATIONS: chest pain TECHNIQUE: One view of the chest was acquired. COMPARISON: [facility], CR, XR CHEST 2 VIEWS, 04/06/2019, 19:05. [facility], CR, XR CHEST 1 VIEW, 09/22/2019, 1:08. [facility], CT, CT CHEST ABDOMEN PELVIS WITH CONTRAST, 09/22/2019, 1:58. FINDINGS: Surgical changes and devices: None. Lungs and pleura: Lungs are clear. No pleural effusions or pneumothorax. Mediastinum: Mediastinal contours appear normal. Heart size is normal. Bones and chest wall: No suspicious bony lesions. Overlying soft tissues appear unremarkable. IMPRESSION: Normal portable chest. Dictated by: Demetrius Bhandari M.D. on 08/12/2021 at 8:54 Approved by: Demetrius Bhandari M.D. on 08/12/2021 at 8:54
--- NOTE | 2021-08-12 09:24 | ED.CHESTPAIN ---
HPI - Chest Pain General Chief Complaint: Chest Pain Stated Complaint: chest pain aniexty attack Time Seen by Provider: 08/12/21 08:56 Source: patient Mode of arrival: Family Vehicle Limitations: no limitations History of Present Illness HPI narrative: This is a 26-year-old female with history of narcotic abuse and fibromyalgia currently on methadone and gabapentin. Patient states that today she had left-sided chest pain underneath her breast. It lasted for about 10-15 minutes she burped while she was here in the department and it has resolved. She denies shortness of breath she denies any nausea or vomiting. She denies any lightheadedness or passing out. She was feeling very anxious and states she gets frequent panic attacks. Patient states she was sweaty. She denies any other GI or urinary symptoms. She states she has had frequent panic attacks since having CPS involved in her life about 6 months ago. There are no longer in fall but she continues to have panic attacks at which she would describe a slight triggers and sometimes not at all. She follows through did while at clinic for her methadone and is getting counseling there. She has a primary care who prescribes her gabapentin. She does not believe she is on anything for anxiety currently. Family history she had a grandmother had cardiac issues but no no close family relatives are young individuals having heart attacks. No allergies. She vapes tobacco, occasional alcohol, has used marijuana, crack cocaine and opiates in the past did not inject or use IM drugs at any point. States she has been clean for some time. Patient denies any surgeries. Related Data Home Medications Medication Instructions Recorded Confirmed bupropion HCl 300 mg 24 hr tablet, 300 mg PO QAM 09/18/17 02/01/20 extended release (Wellbutrin XL) Previous Rx's Medication Instructions Recorded ondansetron 4 mg disintegrating 4 mg PO Q6HR PRN #10 tab 02/07/20 tablet Allergies Allergy/AdvReac Type Severity Reaction Status Date / Time nickel AdvReac Rash Verified 08/12/21 09:00 Review of Systems Review of Systems ROS Unobtainable: All systems reviewed & are unremarkable except as noted in HPI and below Patient History Medical History Fibromyalgia Fibromyalgia Social History Smoking Status: Current every day smoker Smoking Status: Current every day smoker tobacco type: cigarettes and vaping alcohol intake frequency: holidays/special occasions only Substance Use Type: former substance user, marijuana, crack/cocaine and opiates Exam Narrative Exam Narrative: GENERAL: Alert and oriented x three, female in mild distress. HEENT: Head normocephalic, atraumatic, EOMI, pupils reactive, face symmetric, moist mucous membranes NECK: Supple, full range of motion CARDIOVASCULAR: Regular rate and rhythm without murmurs, rubs or gallops. No reproducible chest pain. No ecchymosis or skin changes. RESPIRATORY: Breath sounds equal bilaterally, no wheezes rales or rhonchi. ABDOMEN: Soft, nontender. Normoactive bowel sounds all 4 quadrants. No guarding or rebound, rigidity, no mass : No CVA tenderness EXTREMITIES: Normal range of motion, no clubbing or edema. Neurovascularly intact NEUROLOGICAL: Cranial nerves II through XII grossly intact. Moving all extremities SKIN: Warm, dry, no petechiae, no rashes or lesions. Initial Vital Signs Initial Vital Signs: Vital Signs Temperature 97.6 F 08/12/21 09:00 Pulse Rate 95 H 08/12/21 09:00 Respiratory Rate 22 08/12/21 09:00 Blood Pressure 132/61 08/12/21 09:00 Pulse Oximetry 99 08/12/21 09:00 Course Orders Ordered: ED Orders 08/12/21 09:24 XR chest 1V Stat Complete Blood Count AUTO DIFF Stat Comprehensive Metabolic Panel Stat Lipase Stat Magnesium Stat Troponin & CK Cardiac Panel Stat 08/12/21 09:26 COVID19 -Nasal RAPID/Pre-Proc Stat Reevaluation(s) Reevaluation #1: Patient would like to return home she had EKG which we reviewed. She is anxious about her children her lower at home which she states her chest pain resolved after burping. Return discussed return precautions. All questions answered. She was encouraged return at any time. Time: 09:44 Vital Signs Vital signs: Vital Signs - 8 hr 08/12/21 09:00 Temperature 97.6 F Pulse Rate 95 H Respiratory Rate 22 Blood Pressure 132/61 Pulse Oximetry 99 MDM - Chest Pain Imaging Data Chest x-ray: Radiologist's Impression: [address] [address] XRay Report Signed Patient: TAMMY MIRANDA MR#: [id number] : 1995 Acct:[id number] Age/Sex: 26 / F Date of Service: 08/12/21 Loc: ED Accession Number: [id number] ?? Procedure: XR chest 1V Ordering Provider: Danitza Braxton D.O. PROCEDURE:? XR CHEST 1V ? INDICATIONS:? chest pain ? TECHNIQUE:? One view of the chest was acquired.? ? COMPARISON:? [facility], CR, XR CHEST 2 VIEWS, 04/06/2019, 19:05.? [facility], CR, XR CHEST 1 VIEW, 09/22/2019, 1:08.? [facility], CT, CT CHEST ABDOMEN PELVIS WITH CONTRAST, 09/22/2019, 1:58. ? FINDINGS:? ? Surgical changes and devices:? None.? ? Lungs and pleura:? Lungs are clear.? No pleural effusions or pneumothorax.? ? Mediastinum:? Mediastinal contours appear normal.? Heart size is normal.? ? Bones and chest wall:? No suspicious bony lesions.? Overlying soft tissues appear unremarkable.? IMPRESSION:? Normal portable chest. ? ? Dictated by: Demetrius Bhandari M.D. on 08/12/2021 at 8:54 ? ? Approved by: Demetrius Bhandari M.D. on 08/12/2021 at 8:54?? ECG Data Attestation: I personally reviewed and interpreted this ECG as follows: Interpretation: Sinus rhythm at 89 LA 146 QRS 84 and QTC 464. No acute ST changes. MDM Narrative Medical decision making narrative: This is a 26-year-old female with left-sided chest pain which resolved after you repetition. Patient does not have high risk factors except for history of drug and narcotic abuse but denies IV or injecting history. No strong family history. EKG is reassuring. Patient would like to return home she has multiple children that she needs to attend to. She is also quite anxious and frequently having panic attacks. Discussed with patient there are options for medication which is not addictive and could be taken with her methadone. She does have a primary care that she can follow-up with this. She was encouraged to return at any time if her symptoms return and she defers additional workup including chest x-ray and lab work at this time. Discharge Plan Departure Patient Disposition: Home Clinical Impression: Chest pain Instructions: DI for Atypical Chest Pain Activity Restrictions/Additional Instructions: I hope you continue to feel much better. Follow-up with your physician, discuss options for medication for anxiety and panic attacks there are medications available that can be taken with methadone which are non addictive. Please return for worsening or new symptoms, passing out, persistent vomiting, shortness of breath, new swelling of extremities or other new or concerning symptoms. Prescriptions: No Action ondansetron 4 mg tablet,disintegrating 4 mg PO Q6HR PRN (Reason: nausea and vomiting) Qty: 10 0RF bupropion HCl [Wellbutrin XL] 300 mg Tablet Extended Release 24 Hr 300 mg PO QAM 0RF
--- NOTE | 2021-08-12 09:59 | PC.NURSE ---
Patient states she burped and pain in chest and anxiety were immediately relieved. Spoke with Dr. Braxton and patient no longer wants further testing. Ok to Dc.
== END 2021-08-12 10:00 | disposition home or self-care (01) ==
PROVIDERS: Emergency Provider Emergency Medicine
DX: R07.9 Chest pain, unspecified (principal)
CPT/HCPCS: 71045; 93005; 99282; 99283

== ENCOUNTER 2021-09-03 19:39 | Emergency (ER) | payer OTHER, MEDICAID, SELFPAY ==
[2021-09-03 19:47] VITALS: BP 143/68; PULSE 111; RESP 20; TEMP 37.7; O2SAT 100; BMI 51.2
[2021-09-03] MEDS: IBUPROFEN 400 MG TABLET PO (20:02)
[2021-09-03 21:09] LABS: COVID19 -Nasal RAPID Negative (Negative)
--- NOTE | 2021-09-03 21:53 | ED_ITS ---
HPI - General Adult General Chief complaint: Upper Respiratory Symptoms Stated complaint: Thinks tonsil infection Time Seen by Provider: 09/03/21 21:15 Source: patient Mode of arrival: Ambulatory Limitations: no limitations History of Present Illness HPI narrative: Patient is a 26-year-old female who is here for evaluation of a sore throat and fevers and congestion and painful swallowing and enlarged lymph nodes in her neck. Symptoms been going on for the past day or so. No cough. She has had strep throat multiple times in the past. No problems breathing. Related Data Home Medications Medication Instructions Recorded Confirmed bupropion HCl 300 mg 24 hr tablet, 300 mg PO QAM 09/18/17 02/01/20 extended release (Wellbutrin XL) Previous Rx's Medication Instructions Recorded ondansetron 4 mg disintegrating 4 mg PO Q6HR PRN nausea and 02/07/20 tablet vomiting #10 tabs penicillin V potassium 500 mg 500 mg PO Q12H 10 days #20 tabs 09/03/21 tablet Allergies Allergy/AdvReac Type Severity Reaction Status Date / Time nickel AdvReac Rash Verified 08/12/21 09:00 Review of Systems Constitutional Constitutional: Reports system reviewed and no additional complaints, except as documented ENT Ears, Nose, Mouth, and Throat: Reports system reviewed and no additional complaints, except as documented Respiratory Respiratory: Reports system reviewed and no additional complaints, except as documented Integumentary/Breasts Skin/Breast: Reports system reviewed and no additional complaints, except as documented Hematologic/Lymphatic On Anticoagulants: No Patient History Medical History Fibromyalgia Fibromyalgia Social History Smoking Status: Current every day smoker Smoking Status: Current every day smoker tobacco type: cigarettes and vaping alcohol intake frequency: holidays/special occasions only Substance Use Type: does not use Exam Initial Vital Signs Initial Vital Signs: Vital Signs Temperature 99.8 F H 09/03/21 19:47 Pulse Rate 111 H 09/03/21 19:47 Respiratory Rate 20 09/03/21 19:47 Blood Pressure 143/68 H 09/03/21 19:47 Pulse Oximetry 100 09/03/21 19:47 Oxygen Delivery Method 09/03/21 19:47 Const General: cooperative and comfortable HENMT Head: normal to inspection Face and sinus: normal facial exam Mouth: moist mucous membranes Throat: uvula midline, no peritonsillar masses and posterior oropharynx abnormal erythema and exudates Neck Lymphatic: lymphadenopathy Resp Effort & Inspection: normal respiratory effort Auscultation: clear to auscultation bilaterally Skin General: no rashes or lesions noted Neuro General: patient alert, patient awake, patient oriented x3 and moves all extremities Extrem General: normal to inspection and capillary refill normal Course Orders Ordered: ED Orders 09/03/21 20:10 COVID19 -Nasal RAPID/Pre-Proc Stat 09/03/21 20:15 Throat Culture Stat Discontinued Medications Dexamethasone (Dexamethasone 4 Mg Tablet) 12 mg PO NOW ONE Stop: 09/03/21 21:54 Last Admin: 09/03/21 22:20 Dose: 12 mg Documented By: KIRSTIN Ibuprofen (Ibuprofen 400 Mg Tablet) 400 mg PO NOW ONE Stop: 09/03/21 19:57 Last Admin: 09/03/21 20:02 Dose: 400 mg Documented By: VÍCTOR Penicillin V Potassium (Penicillin Vk 250 Mg Tablet) 500 mg PO NOW ONE Stop: 09/03/21 21:54 Last Admin: 09/03/21 22:20 Dose: 500 mg Documented By: KIRSTIN Vital Signs Vital signs: Vital Signs - 8 hr 09/03/21 19:47 09/03/21 22:28 Temperature 99.8 F H Pulse Rate 111 H 100 H Respiratory Rate 20 Blood Pressure 143/68 H 137/73 Pulse Oximetry 100 95 Oxygen Delivery Method Room Air Room Air Medical Decision Making Lab Data Labs: Lab Results 09/03/21 Range/Units 20:10 SARS-CoV-2 (PCR) Negative (Negative) Point of Care Testing Rapid Strep A Negative Point of care testing: Point of Care Testing Rapid Strep A Negative [facility] Narrative Medical decision making narrative: Patient's rapid strep was negative however she has had no cough, fevers at home, para tonsillar exudates and lymphadenopathy. We did discuss options to include waiting until the throat culture returns verses treating her clinically for strep throat. Discussed the risks and benefits of each of these. After this discussion she opted to be treated for strep throat. She was given a dose of antibiotics here in the ER. Was also given a dose of steroids. Low suspicion for peritonsillar abscess or retropharyngeal abscess given her presentation today. No respiratory distress. Will discharge home with prescription for antibiotics. She was given return precautions. She expressed understanding and agreement. Discharge Plan Departure Patient Disposition: Home Clinical Impression: Pharyngitis Instructions: Sore Throat Activity Restrictions/Additional Instructions: A prescription for antibiotics was sent to [facility]. Please start taking it tomorrow as directed. Continue the rest of your medications as directed. Return to the emergency department for any new or worsening symptoms. Prescriptions: New penicillin V potassium 500 mg tablet 500 mg PO Q12H 10 Days Qty: 20 0RF No Action ondansetron 4 mg tablet,disintegrating 4 mg PO Q6HR PRN (Reason: nausea and vomiting) Qty: 10 0RF bupropion HCl [Wellbutrin XL] 300 mg Tablet Extended Release 24 Hr 300 mg PO QAM Visit Report Forms: Patient Portal/API
[2021-09-03] MEDS: PENICILLIN VK 250 MG TABLET 500 MG PO (22:20)
[2021-09-03] MEDS: dexAMETHasone 4 MG TABLET 12 MG PO (22:20)
[2021-09-03 22:28] VITALS: BP 137/73; PULSE 100; O2SAT 95
== END 2021-09-03 22:29 | disposition home or self-care (01) ==
PROVIDERS: Emergency Medicine; Emergency Provider Emergency Medicine
DX: J02.9 Acute pharyngitis, unspecified (principal); R50.9 Fever, unspecified; Z20.822 Contact with and (suspected) exposure to COVID-19
CPT/HCPCS: 87070; 87077; 87147; 87635; 87880; 99283; C9803

== ENCOUNTER 2021-09-08 20:41 | Emergency (ER) | payer OTHER, MEDICAID, SELFPAY ==
[2021-09-08 20:44] VITALS: BP 132/79; PULSE 84; RESP 22; TEMP 36.6; O2SAT 99
--- NOTE | 2021-09-08 20:59 | DI.RAD.S_ITS ---
PROCEDURE: XR CHEST 1V INDICATIONS: chest pain TECHNIQUE: One view of the chest was acquired. COMPARISON: [facility], CR, XR CHEST 1V, 08/12/2021, 9:46. FINDINGS: Surgical changes and devices: None. Lungs and pleura: Lungs are clear. No pleural effusions or pneumothorax. Mediastinum: Mediastinal contours appear normal. Heart size is normal. Bones and chest wall: No suspicious bony lesions. Overlying soft tissues appear unremarkable. IMPRESSION: 1. No acute cardiopulmonary disease. Dictated by: Yuval Allison M.D. on 09/08/2021 at 22:59 Approved by: Yuval Allison M.D. on 09/08/2021 at 22:59
[2021-09-08 21:41] LABS: Add Manual Diff / Slide Review NO; Basophils Absolute Auto 100 /uL (0-100); Basophils Percent Auto 0.6 % (0-2); Eosinophils Absolute Auto 100 /uL (0-450); Eosinophils Percent Auto 1.1 % (2-4); Hematocrit 38.8 % (36-46); Lymphocytes Absolute Auto 3100 /uL (1100-4500); Lymphocytes Percent Auto 28.7 % (25-40); Mean Corpuscular HGB Conc 33.4 % (30-36); Mean Corpuscular Hemoglobin 29.4 PG (26-34); Mean Corpuscular Volume 88.1 fL (80-100); Monocytes Absolute Auto 600 /uL (0-900); Monocytes Percent Auto 5.7 % (3-14); Neutrophils Absolute Auto 7000 /uL (1500-7000); Neutrophils Percent Auto 63.9 % (50-75); Platelet Count 304 X10^3/uL (150-400); Red Blood Cell Count 4.41 X10^6/uL (4.0-5.2); Red Cell Distribution Width 14.5 % (11.6-14.8); White Blood Cell Count 10.9 X10^3/uL (4.5-11.0)
[2021-09-08 21:45] LABS: Alanine Aminotransferase 81 IU/L (<35); Albumin 4.8 g/dL (3.5-5.0); Albumin Globulin Ratio 1.3 (1.0-2.8); Alkaline Phosphatase 74 U/L (38-126); Aspartate Aminotransferase 46 IU/L (14-36); BUN Creatinine Ratio 12.2 (6-22); Bilirubin Total 0.3 mg/dL (0.2-1.3); Blood Urea Nitrogen 9 mg/dL (7-17); Calcium 9.2 mg/dL (8.4-10.2); Carbon Dioxide 29 mmol/L (22-32); Chloride 101 mmol/L (98-107); Creatine Kinase 68 U/L (30-135); Estimated Glomerular Filt Rate > 60 mL/min (>60); Globulin 3.8 g/dL (1.7-4.1); Glucose 107 mg/dL (70-100); HEMOLYSIS 15 (0-50); Lipase 100 U/L (23-300); Magnesium 2.1 mg/dL (1.6-2.3); Potassium 3.8 mmol/L (3.4-5.1); Sodium 141 mmol/L (137-145); Total Protein 8.6 g/dL (6.3-8.2)
[2021-09-08 21:56] LABS: Troponin I < 0.012 ng/mL (0.01-0.034)
--- NOTE | 2021-09-09 00:14 | ED_ITS ---
HPI - Dizziness General Chief Complaint: Dizziness Stated Complaint: dizzy, lightheaded, something is not right Time Seen by Provider: 09/09/21 00:09 Source: patient Mode of arrival: Ambulatory History of Present Illness HPI Narrative: Patient complains of lightheadedness for the past 2 or 3 days. Has had decreased oral intake because she was seen here about 5 days ago for sore throat. Has pain with swallowing. Patient is taking penicillin for treatment of pharyngitis. Patient also states she does sweat a lot and has diarrhea due to taking methadone. At this time she feels that she is not getting enough fluids because of the circumstances. Denies any chest pain or palpitations. Denies any black or bloody stools. No headache. No chest pain or palpitations or dyspnea. Patient in no distress. EKG is normal EKG. Denies . She states she is just finishing her period now. Patient states as lightheadedness with positional changes also at times lying still Related Data Home Medications Medication Instructions Recorded Confirmed bupropion HCl 300 mg 24 hr tablet, 300 mg PO QAM 09/18/17 02/01/20 extended release (Wellbutrin XL) Previous Rx's Medication Instructions Recorded ondansetron 4 mg disintegrating 4 mg PO Q6HR PRN nausea and 02/07/20 tablet vomiting #10 tabs penicillin V potassium 500 mg 500 mg PO Q12H 10 days #20 tabs 09/03/21 tablet Allergies Allergy/AdvReac Type Severity Reaction Status Date / Time nickel AdvReac Rash Verified 08/12/21 09:00 Review of Systems Review of Systems Narrative: GENERAL: Denies chills, fatigue, malaise, fever, sweats. HEENT: Denies sinus pain, ear pain, positive for sore throat RESPIRATORY: Denies dyspnea, cough CARDIOVASCULAR: Denies chest pain, palpitations GASTROINTESTINAL: Denies nausea, vomiting, abdominal pain : Denies dysuria, frequency, hematuria MUSCULOSKELETAL: denies muscle or bony pain SKIN: Denies rash, skin lesions NEUROLOGIC: Denies weakness, numbness, positive for dizziness ROS Unobtainable: All systems reviewed & are unremarkable except as noted in HPI and below Patient History Medical History Fibromyalgia Fibromyalgia Social History Smoking Status: Current every day smoker Smoking Status: Current every day smoker tobacco type: cigarettes and vaping alcohol intake frequency: holidays/special occasions only Substance Use Type: does not use Exam Narrative Exam Narrative: GENERAL: in no distress, not toxic not dyspneic HEAD: Normocephalic. EYES: Pupils equal round No scleral icterus. No pale conjunctivae ENT: Mucous membranes moist. Symmetric bilateral pharyngeal erythema but no exudates. No muffled voice. NECK: Trachea midline. Mild bilateral submandibular tenderness CARDIOVASCULAR: Regular rate and rhythm without murmurs RESPIRATORY: Clear to auscultation. Breath sounds equal bilaterally. No wheezes, rales, or rhonchi. GASTROINTESTINAL: Abdomen soft, non-tender EXTREMITIES: No gross deformities. BACK: No flank tenderness. NEURO: AOx4. SKIN: Warm and dry PSYCH: Not anxious, is cooperative Initial Vital Signs Initial Vital Signs: Vital Signs Temperature 97.9 F 09/08/21 20:44 Pulse Rate 84 09/08/21 20:44 Respiratory Rate 22 09/08/21 20:44 Blood Pressure 132/79 09/08/21 20:44 Pulse Oximetry 99 09/08/21 20:44 Oxygen Delivery Method 09/08/21 20:44 Course Course Course Narrative: No new issues during course of stay Orders Ordered: ED Orders 09/08/21 20:59 XR chest 1V Stat 09/08/21 21:00 Complete Blood Count AUTO DIFF Stat Comprehensive Metabolic Panel Stat Lipase Stat Magnesium Stat Troponin & CK Cardiac Panel Stat 09/08/21 21:01 EKG-12 Lead Stat 09/09/21 01:04 Urine Drug Screen, Rapid Stat Discontinued Medications Sodium Chloride (Normal Saline 0.9%) 1,000 mls @ 1,000 mls/hr IV BOLUS ONE Stop: 09/09/21 01:12 Last Infusion: 09/09/21 04:12 Dose: 0 mls/hr Documented By: Admin: 09/09/21 01:12 Dose: 1,000 mls/hr Documented By: EB Reevaluation(s) Reevaluation #1: Patient resting comfortably. Awoke to review results. She states feels much better after IV fluids. Does not feel dizzy. Desires discharge home. Time: 04:06 Vital Signs Vital signs: Vital Signs - 8 hr 09/09/21 04:24 Pulse Rate 76 Respiratory Rate 18 Blood Pressure 116/74 Pulse Oximetry 98 Oxygen Delivery Method Room Air MDM - Dizziness Differential Diagnosis Differential diagnosis: Likely adverse reaction to drug, benign paroxysmal positional vertigo, orthostatic hypotension and acute vestibular neuronitis Lab Data Result diagrams: 09/08/21 21:00 09/08/21 21:00 Labs: Lab Results 09/08/21 09/08/21 09/09/21 Range/Units 21:00 21:00 01:04 WBC 10.9 (4.5-11.0) X10^3/uL RBC 4.41 (4.0-5.2) X10^6/uL Hgb 13.0 (12.0-16.0) g/dL Hct 38.8 (36-46) % MCV 88.1 (80-100) fL MCH 29.4 (26-34) PG MCHC 33.4 (30-36) % RDW 14.5 (11.6-14.8) % Plt Count 304 (150-400) X10^3/uL Neut % (Auto) 63.9 (50-75) % Lymph % (Auto) 28.7 (25-40) % Falls % (Auto) 5.7 (3-14) % Eos % (Auto) 1.1 L (2-4) % Baso % (Auto) 0.6 (0-2) % Neut # (Auto) 7000 (9824-4712) /uL Lymph # (Auto) 3100 (9427-2310) /uL Falls # (Auto) 600 (0-900) /uL Eos # (Auto) 100 (0-450) /uL Baso # (Auto) 100 (0-100) /uL Sodium 141 (137-145) mmol/L Potassium 3.8 (3.4-5.1) mmol/L Chloride 101 (98-107) mmol/L Carbon Dioxide 29 (22-32) mmol/L BUN 9 (7-17) mg/dL Creatinine 0.74 (0.52-1.04) mg/dL Estimated GFR > 60 (>60) mL/min BUN/Creatinine Ratio 12.2 (6-22) Glucose 107 H (70-100) mg/dL Calcium 9.2 (8.4-10.2) mg/dL Magnesium 2.1 (1.6-2.3) mg/dL Total Bilirubin 0.3 (0.2-1.3) mg/dL AST 46 H (14-36) IU/L ALT 81 H (<35) IU/L Alkaline Phosphatase 74 (38-126) U/L Total Creatine Kinase 68 (30-135) U/L CK-MB (CK-2) TNP CK-MB (CK-2) Rel Index TNP Troponin I < 0.012 (0.01-0.034) ng/mL Total Protein 8.6 H (6.3-8.2) g/dL Albumin 4.8 (3.5-5.0) g/dL Globulin 3.8 (1.7-4.1) g/dL Albumin/Globulin Ratio 1.3 (1.0-2.8) Lipase 100 (23-300) U/L U Opiates 300ng/mL cut Negative (Negative) Ur Oxycodone Screen Negative (Negative) Urine Methadone Screen Positive H (Negative) Ur Barbiturates Screen Negative (Negative) U Tricyclic Antidepress Negative (Negative) Ur Phencyclidine Scrn Negative (Negative) Ur Amphetamines Screen Negative (Negative) U Methamphetamines Scrn Negative (Negative) Ur MDMA Scrn (Ecstasy) Negative (Negative) U Benzodiazepines Scrn Negative (Negative) Urine Cocaine Screen Negative (Negative) U Marijuana (THC) Screen Negative (Negative) Point of Care Testing Test Results Negative Urine Dip Bedside Urine Glucose Negative Bedside Urine Bilirubin - Negative Bedside Urine Ketone - Negative Urine Specific [place] 1.010 Bedside Urine Occult Blood - Negative Bedside Urine pH 8.0 Bedside Urine Protein - Negative Bedside Urine Urobilinogen - Negative Bedside Urine Nitrite - Negative Bedside Urine Leukocytes - Negative Esterase ECG Data Interpretation: Normal sinus rhythm normal EKG rate 73 MDM Narrative Medical decision making narrative: Appropriate for discharge home. Laboratory studies and exam reassuring. Likely feeling dehydrated from decreased oral intake due to sore throat. However is maintaining airway. As well as no drooling. Handling secretions without any difficulties. Return precautions reviewed with her. She desires discharge home Discharge Plan Departure Patient Disposition: Home Clinical Impression: Decreased oral intake Instructions: DI for Dehydration -- Adult Activity Restrictions/Additional Instructions: Keep well hydrated. Return if worse if any questions or any concerns. Be sure to complete your antibiotics. See family doctor hand a week for recheck. Call provided primary care referral phone number to establish family doctor. Call [phone] Prescriptions: No Action ondansetron 4 mg tablet,disintegrating 4 mg PO Q6HR PRN (Reason: nausea and vomiting) Qty: 10 0RF bupropion HCl [Wellbutrin XL] 300 mg Tablet Extended Release 24 Hr 300 mg PO QAM penicillin V potassium 500 mg tablet 500 mg PO Q12H 10 Days Qty: 20 0RF Referrals: Olga Byrd ARNP [Primary Care Provider] - Visit Report Forms: Patient Portal/API
[2021-09-09] MEDS: SODIUM CHLORIDE 0.9% 1,000 ML 1000 ML IV (01:12)
[2021-09-09 01:16] LABS: UR Morphine/Opiate cutoff 300 Negative (Negative); Ur Creatinine 20 (Normal); Ur Specific Gravity 1.005 (Normal); Urine Amphetamines Negative (Negative); Urine Cocaine Negative (Negative); Urine Tetrahydrocannabinol Negative (Negative); Urine pH 9 (Normal)
[2021-09-09 01:17] LABS: Urine Barbiturates Negative (Negative); Urine Benzodiazepines Negative (Negative); Urine MDMA Negative (Negative); Urine Methadone Positive (Negative); Urine Methamphetamines Negative (Negative); Urine Oxycodone Negative (Negative); Urine Phencyclidine Negative (Negative); Urine Tricyclic Antidepressant Negative (Negative)
[2021-09-09 04:24] VITALS: BP 116/74; PULSE 76; RESP 18; O2SAT 98
== END 2021-09-09 04:25 | disposition home or self-care (01) ==
PROVIDERS: Emergency Provider Emergency Medicine; PCP Nurse Practitioner Family
DX: R63.8 Other symptoms and signs concerning food and fluid intake (principal); J02.9 Acute pharyngitis, unspecified; R07.9 Chest pain, unspecified
CPT/HCPCS: 71045; 80053; 80305; 81003; 81025; 82550; 83690; 83735; 84484; 85025; 93005; 96360; 96361; 99283; 99284

== ENCOUNTER 2021-10-01 21:57 | Emergency (ER) | payer OTHER, MEDICAID, SELFPAY ==
[2021-10-01 22:36] VITALS: BP 124/62; PULSE 97; RESP 18; TEMP 36.6; O2SAT 98; BMI 47.5
[2021-10-01 23:00] LABS: COVID19 -Nasal RAPID POSITIVE (Negative)
--- NOTE | 2021-10-01 23:48 | ED.GENADULT ---
HPI - General Adult General Chief complaint: Upper Respiratory Symptoms Stated complaint: states has covid symptoms Time Seen by Provider: 10/01/21 23:42 Source: patient Mode of arrival: Ambulatory History of Present Illness HPI narrative: 26-year-old unvaccinated female who is here for evaluation of 2 days' of cough and congestion and fevers. Other individuals in her family have the same symptoms. She was concerned about COVID. Related Data Home Medications Medication Instructions Recorded Confirmed bupropion HCl 300 mg 24 hr tablet, 300 mg PO QAM 09/18/17 02/01/20 extended release (Wellbutrin XL) Previous Rx's Medication Instructions Recorded ondansetron 4 mg disintegrating 4 mg PO Q6HR PRN nausea and 02/07/20 tablet vomiting #10 tabs Allergies Allergy/AdvReac Type Severity Reaction Status Date / Time nickel AdvReac Rash Verified 08/12/21 09:00 Review of Systems Constitutional Constitutional: Reports as per HPI and Reports system reviewed and no additional complaints, except as documented Respiratory Respiratory: Reports as per HPI and Reports system reviewed and no additional complaints, except as documented Allergic/Immunologic Allergic/Immunologic: Reports system reviewed and no additional complaints, except as documented Patient History Medical History Fibromyalgia Fibromyalgia Social History Smoking Status: Current every day smoker Smoking Status: Current every day smoker tobacco type: cigarettes and vaping alcohol intake frequency: holidays/special occasions only Substance Use Type: does not use Exam Initial Vital Signs Initial Vital Signs: Vital Signs Temperature 97.9 F 10/01/21 22:36 Pulse Rate 97 H 10/01/21 22:36 Respiratory Rate 18 10/01/21 22:36 Blood Pressure 124/62 10/01/21 22:36 Pulse Oximetry 98 10/01/21 22:36 Oxygen Delivery Method 10/01/21 22:36 HENMT Head: normal to inspection and normocephalic Resp Effort & Inspection: normal respiratory effort Auscultation: clear to auscultation bilaterally Cardio Rate: regular rate Rhythm: regular rhythm Skin General: no rashes or lesions noted Course Orders Ordered: ED Orders 10/01/21 22:35 COVID19 -Nasal RAPID/Pre-Proc Stat Vital Signs Vital signs: Vital Signs - 8 hr 10/01/21 22:36 Temperature 97.9 F Pulse Rate 97 H Respiratory Rate 18 Blood Pressure 124/62 Pulse Oximetry 98 Oxygen Delivery Method Room Air Medical Decision Making Lab Data Labs: Lab Results 10/01/21 Range/Units 22:35 SARS-CoV-2 (PCR) Positive H (Negative) MDM Narrative Medical decision making narrative: Nontoxic. Not hypoxic. Not tachypneic. Clear lung exam. Afebrile. Is positive for COVID-19. Patient was given this information. No indication for antibiotics. She was given return precautions and follow-up instructions. We did discuss the need for quarantine. She expressed understanding and agreement. Discharge Plan Departure Patient Disposition: Home Clinical Impression: COVID-19 Instructions: DI for COVID-19 (Suspected or Confirmed ) Activity Restrictions/Additional Instructions: You can take Tylenol or ibuprofen for any fevers. Continue the rest of your medications as directed. Follow all current CDC guidelines with regard to quarantine with COVID-19. Return to the emergency department for any new or worsening symptoms. Prescriptions: No Action ondansetron 4 mg tablet,disintegrating 4 mg PO Q6HR PRN (Reason: nausea and vomiting) Qty: 10 0RF bupropion HCl [Wellbutrin XL] 300 mg Tablet Extended Release 24 Hr 300 mg PO QAM Referrals: Olga Byrd ARNP [Primary Care Provider] - Visit Report Forms: Patient Portal/API
== END 2021-10-02 00:03 | disposition home or self-care (01) ==
PROVIDERS: Emergency Provider Emergency Medicine; PCP Nurse Practitioner Family
DX: U07.1 COVID-19 (principal)
CPT/HCPCS: 87635; 99281; 99282; C9803

== ENCOUNTER 2021-12-24 02:08 | Emergency (ER) | payer OTHER, MEDICAID, SELFPAY ==
[2021-12-24 02:21] VITALS: BP 139/81; PULSE 97; RESP 20; TEMP 37.1; O2SAT 100; BMI 51.2
--- NOTE | 2021-12-24 02:26 | DI.RAD.S_ITS ---
PROCEDURE: XR CHEST 1V INDICATIONS: chest pain TECHNIQUE: One view of the chest was acquired. COMPARISON: [facility], CR, XR CHEST 1V, 09/08/2021, 21:35. FINDINGS: Surgical changes and devices: None. Lungs and pleura: Lungs are clear. No pleural effusions or pneumothorax. Mediastinum: Mediastinal contours appear normal. Heart size is normal. Bones and chest wall: No suspicious bony lesions. Overlying soft tissues appear unremarkable. IMPRESSION: No acute cardiopulmonary disease. No significant discrepancy with the slot shift supervisor radiology preliminary report. Dictated by: Tigre Garcia M.D. on 12/24/2021 at 8:13 Approved by: Tigre Garcia M.D. on 12/24/2021 at 8:13
--- NOTE | 2021-12-24 02:37 | ED.ARRPALP ---
HPI - Arrhythmia/Palpitations General Chief Complaint: Arrhythmia/Palpitations Stated Complaint: DIZZY, HEART DOESNT FEEL RIGHT, FLUTTERING Time Seen by Provider: 12/24/21 02:15 Source: patient Mode of arrival: Ambulatory History of Present Illness HPI narrative: 26-year-old female nonsmoker with history of anxiety and prior opioid abuse now currently on methadone presents with a chief complaint of the sensation of palpitations and that her heart is beating irregularly over the past few hours. She denies any dizziness or lightheadedness but does feel some shortness of breath. She denies any nausea, vomiting or diarrhea. She denies any change in medications but does state that recently she is been trying to eat healthier than normal. She denies recent travel, history of blood clot, known cancer Related Data Home Medications Medication Instructions Recorded Confirmed bupropion HCl 300 mg 24 hr tablet, 300 mg PO QAM 09/18/17 02/01/20 extended release (Wellbutrin XL) Previous Rx's Medication Instructions Recorded ondansetron 4 mg disintegrating 4 mg PO Q6HR PRN nausea and 02/07/20 tablet vomiting #10 tabs Allergies Allergy/AdvReac Type Severity Reaction Status Date / Time nickel AdvReac Rash Verified 08/12/21 09:00 Review of Systems Review of Systems Narrative: GENERAL: See HPI HEENT: Denies sinus pain, ear pain, sore throat, difficulty swallowing, dizziness. RESPIRATORY: Denies dyspnea, cough, wheezing, hemoptysis, sputum. CARDIOVASCULAR: Denies chest pain, palpitations, orthopnea, edema, GASTROINTESTINAL: Denies nausea, vomiting, abdominal pain, diarrhea, constipation, melena. : Denies dysuria, frequency, incontinence, hematuria, urinary retention. MUSCULOSKELETAL: denies weakness, joint pain, or bony pain SKIN: Denies rash, skin lesions, or other NEUROLOGIC: Denies weakness, headache, numbness, change in speech, confusion, seizures, incoordination. PSYCHIATRIC: See HP 12 point review of systems is negative except for those stated above Patient History Medical History Fibromyalgia Fibromyalgia Social History Smoking Status: Current every day smoker Smoking Status: Current every day smoker tobacco type: cigarettes and vaping alcohol intake frequency: holidays/special occasions only Substance Use Type: does not use Exam Narrative Exam Narrative: GENERAL: [26] year old patient appears stated age. Well-developed patient, in mild distress. Anxious HEAD: Atraumatic. Normocephalic. EYES: Pupils equal round and reactive. Extraocular motions intact. No scleral icterus. No injection or drainage. ENT: Nose without bleeding, purulent drainage. Throat without erythema, tonsillar hypertrophy or exudate. Airway patent. NECK: Trachea midline. Non tender CARDIOVASCULAR: Regular rate and rhythm without murmurs, gallops, or rubs. RESPIRATORY: Clear to auscultation. Breath sounds equal bilaterally. No wheezes, rales, or rhonchi. GASTROINTESTINAL: Abdomen soft, non-tender, nondistended. EXTREMITIES: No edema or joint tenderness. BACK: Nontender without deformity or crepitance. No flank tenderness. NEURO: AOx3. SKIN: No rash or erythema of visible areas Initial Vital Signs Initial Vital Signs: Vital Signs Temperature 98.7 F 12/24/21 02:21 Pulse Rate 97 H 12/24/21 02:21 Respiratory Rate 20 12/24/21 02:21 Blood Pressure 139/81 12/24/21 02:21 Pulse Oximetry 100 12/24/21 02:21 Oxygen Delivery Method 12/24/21 02:21 Course Orders Ordered: ED Orders 12/24/21 02:23 EKG-12 Lead Stat 12/24/21 02:26 XR chest 1V Stat Complete Blood Count AUTO DIFF Stat Comprehensive Metabolic Panel Stat Lipase Stat Magnesium Stat Troponin & CK Cardiac Panel Stat Vital Signs Vital signs: Vital Signs - 8 hr 12/24/21 02:21 Temperature 98.7 F Pulse Rate 97 H Respiratory Rate 20 Blood Pressure 139/81 Pulse Oximetry 100 Oxygen Delivery Method Room Air MDM - Arrhythmia/Palpitations ECG Data Interpretation: [0223] EKG is normal sinus rhythm rate [ 89] and free of any signs of ischemia or ectopy. No ST segmental elevation or depression. No T wave inversions Discharge Plan Departure Prescriptions: No Action ondansetron 4 mg tablet,disintegrating 4 mg PO Q6HR PRN (Reason: nausea and vomiting) Qty: 10 0RF bupropion HCl [Wellbutrin XL] 300 mg Tablet Extended Release 24 Hr 300 mg PO QA Referrals: Olga Byrd ARNP [Primary Care Provider] -
[2021-12-24 02:48] LABS: Add Manual Diff / Slide Review NO; Basophils Absolute Auto 100 /uL (0-100); Basophils Percent Auto 0.6 % (0-2); Eosinophils Absolute Auto 100 /uL (0-450); Hematocrit 39.7 % (36-46); Lymphocytes Absolute Auto 2900 /uL (1100-4500); Lymphocytes Percent Auto 32.6 % (25-40); Mean Corpuscular HGB Conc 32.8 % (30-36); Mean Corpuscular Volume 88.3 fL (80-100); Monocytes Absolute Auto 700 /uL (0-900); Monocytes Percent Auto 7.8 % (3-14); Neutrophils Absolute Auto 5200 /uL (1500-7000); Platelet Count 320 X10^3/uL (150-400); Red Cell Distribution Width 14.3 % (11.6-14.8)
[2021-12-24 02:58] LABS: Alanine Aminotransferase 33 IU/L (<35); Albumin 4.6 g/dL (3.5-5.0); Albumin Globulin Ratio 1.2 (1.0-2.8); Alkaline Phosphatase 78 U/L (38-126); Aspartate Aminotransferase 32 IU/L (14-36); BUN Creatinine Ratio 12.9 (6-22); Bilirubin Total 0.2 mg/dL (0.2-1.3); Blood Urea Nitrogen 9 mg/dL (7-17); Carbon Dioxide 26 mmol/L (22-32); Chloride 102 mmol/L (98-107); Creatine Kinase 169 U/L (30-135); Estimated Glomerular Filt Rate > 60 mL/min (>60); Globulin 3.8 g/dL (1.7-4.1); Glucose 95 mg/dL (70-100); HEMOLYSIS 18 (0-50); Lipase 95 U/L (23-300); Magnesium 2.1 mg/dL (1.6-2.3); Potassium 3.7 mmol/L (3.4-5.1); Sodium 140 mmol/L (137-145); Total Protein 8.4 g/dL (6.3-8.2)
[2021-12-24 03:09] LABS: Troponin I < 0.012 ng/mL (0.01-0.034)
[2021-12-24 03:14] LABS: CKMB % Relative Index 0.5 % (1.5-5.0); Creatine Kinase MB 0.92 ng/mL (<2.37)
[2021-12-24 03:48] VITALS: BP 105/58; PULSE 90; RESP 20; O2SAT 99
== END 2021-12-24 03:52 | disposition home or self-care (01) ==
PROVIDERS: Emergency Provider Emergency Medicine; PCP Nurse Practitioner Family
DX: R00.2 Palpitations (principal); R07.9 Chest pain, unspecified
CPT/HCPCS: 36415; 71045; 80053; 82550; 82553; 83690; 83735; 84484; 85025; 93005; 99283; 99284

== ENCOUNTER → 2022-05-02 11:55 | Outpatient (CLI) | payer OTHER, MEDICAID, SELFPAY ==
--- NOTE | 2022-05-02 | DI.US.S_ITS ---
PROCEDURE: US OB >= 14 WEEKS FETUS INDICATIONS: DATING OUTSIDE/PRIOR DATING DATA: First dating scan (date and location): 05/02/2022. Estimated date of delivery (MESERET) from first dating scan: 09/28/2022. TECHNIQUE: Real-time scanning was performed of the fetus, with image documentation and biometric measurements. COMPARISON: None. FINDINGS: General: A single living intrauterine gestation is present. Presentation: Breech. Placenta: Placental position is posterior, without previa. Amniotic fluid index: 17.2 cm, normal range is 5-24 cm. Single deepest vertical pocket is 5.6 cm. heart rate: 137 beats per minute. Maternal cervical canal: 4.1 cm long. Normal lower limit is 2.5 cm. biometrics: Biparietal diameter: 19 weeks 2 days Head circumference: 19 weeks 2 days Abdominal circumference: 18 weeks 3 days Femur length: 18 weeks 0 days Clinically estimated gestational age: N/a Composite gestational age from present scan: 18 weeks 5 days Estimated weight and percentile: 236 g Anatomic survey not performed secondary to early gestational age. IMPRESSION: 1. Single living IUP with mean composite gestational age of 18 weeks 5 days corresponding to ultrasound MESERET of 09/28/2022. 2. Anatomic survey not performed secondary to early gestational age and follow-up is recommended. We strive to produce accurate, complete, and clear reports of imaging services. To assist us in improving patient care, this report was composed using standard report templates and voice recognition software. Therefore, it may contain abnormal punctuation, insertions and/or omissions. Occasional wrong-word or sound-alike substitutions may occur. Though we review the report and make efforts to correct it, we do recommend that the report be read carefully in proper context to recognize any text inaccuracies. Dictated by: Jayson COLE Interpreted: Dru Leal MD on 05/02/2022 at 12:47 Transcribed by: SHAWNA on 05/02/2022 at 12:49 Approved by: Dru Leal M.D. on 05/02/2022 at 21:14
== END ==
PROVIDERS: PCP Nurse Practitioner Family; Referring Provider Advanced Practice Midwife; Visit Provider Advanced Practice Midwife
DX: Z36.87 Encounter for antenatal screening for uncertain dates; O09.72 Supervision of high risk pregnancy due to social problems, second trimester; O09.32 Supervision of pregnancy with insufficient antenatal care, second trimester; Z3A.18 18 weeks gestation of pregnancy
CPT/HCPCS: 76811

== ENCOUNTER → 2022-05-19 12:29 | Outpatient (CLI) | payer OTHER, MEDICAID, SELFPAY ==
--- NOTE | 2022-05-19 | DI.US.S_ITS ---
PROCEDURE: US OB >= 14 WEEKS FETUS INDICATIONS: Anatomy Scan OUTSIDE/PRIOR DATING DATA: First dating scan (date and location): May 02, 2022. Estimated date of delivery (MESERET) from first dating scan: September 28, 2022 The calculations are made using the ultrasound MESERET of September 28, 2022. TECHNIQUE: Real-time scanning was performed of the fetus, with image documentation and biometric measurements. Endovaginal scanning: Not performed COMPARISON: [facility], , OB >= 14 WEEKS FETUS, 05/02/2022, 12:08. FINDINGS: General: A single living intrauterine gestation is present. Presentation: Breech. Placenta: Placental position is posterior , without previa. Amniotic fluid index: 18.2 cm, normal range is 5-24 cm. Single deepest vertical pocket is 5.9 cm. heart rate: 130 beats per minute. Maternal cervical canal: 4.6 cm long. Normal lower limit is 2.5 cm. biometrics: Biparietal diameter: 4.7 cm, 20 weeks and 1 day Head circumference: 17.4 cm, 20 weeks and 0 days Abdominal circumference: 16.4 cm, 21 weeks and 3 days Femur length: 3.8 cm, 22 weeks and 1 day Initial ultrasound estimated gestational age: 21 weeks and 0 days Composite gestational age from present scan: 21 weeks and 1 day Estimated weight and percentile: Not measured Anatomic survey: Neuro: Ventricles are non-dilated at less than 10 mm. Cisterna magna is normal at 3-11 mm. Cerebellum is normal in size and morphology. Nuchal skin fold: Normal at less than 6 mm between 14-21 weeks gestational age. Face: Nose and lips, facial profile are normal. Spine: No evidence for spina bifida. Heart: 4-chambered heart is present, with normal ventricular outflow tracts. Diaphragm: Diaphragm is intact. Stomach: Left-sided stomach is present. Kidneys: No hydronephrosis. Normal is less than 5 mm in 2nd trimester, less than 7 mm in 3rd trimester. Cord: 3-vessel cord has orthotopic insertion. Bladder: Normal in size. Extremities: All 4 extremities identified. IMPRESSION: Single living intrauterine gestation with estimated sonographic gestational age of approximately 21 weeks and 1 day. Normal interval growth has occurred. Unremarkable routine second-trimester anatomy screening survey. We strive to produce accurate, complete, and clear reports of imaging services. To assist us in improving patient care, this report was composed using standard report templates and voice recognition software. Therefore, it may contain abnormal punctuation, insertions and/or omissions. Occasional wrong-word or sound-alike substitutions may occur. Though we review the report and make efforts to correct it, we do recommend that the report be read carefully in proper context to recognize any text inaccuracies. Dictated by: Sarthak Faulkner M.D. on 05/20/2022 at 12:25 Approved by: Sarthak Faulkner M.D. on 05/20/2022 at 12:32
[2022-05-19 14:34] LABS: Add Manual Diff / Slide Review NO; Basophils Absolute Auto 0 /uL (0-100); Basophils Percent Auto 0.3 % (0-2); Eosinophils Absolute Auto 100 /uL (0-450); Eosinophils Percent Auto 0.6 % (2-4); Hemoglobin 11.8 g/dL (12.0-16.0); Lymphocytes Absolute Auto 2300 /uL (1100-4500); Lymphocytes Percent Auto 23.1 % (25-40); Mean Corpuscular HGB Conc 33.8 % (30-36); Mean Corpuscular Hemoglobin 30.3 PG (26-34); Mean Corpuscular Volume 89.5 fL (80-100); Monocytes Absolute Auto 700 /uL (0-900); Monocytes Percent Auto 7.1 % (3-14); Neutrophils Absolute Auto 6700 /uL (1500-7000); Neutrophils Percent Auto 68.9 % (50-75); Platelet Count 277 X10^3/uL (150-400); Red Cell Distribution Width 15.4 % (11.6-14.8); White Blood Cell Count 9.8 X10^3/uL (4.5-11.0)
[2022-05-19 14:40] LABS: Hemoglobin A1C% w Est Avg Glu 5.3 % (4.0-6.0)
[2022-05-19 14:48] LABS: Alanine Aminotransferase 23 IU/L (<35); Albumin 3.5 g/dL (3.5-5.0); Albumin Globulin Ratio 1.1 (1.0-2.8); Alkaline Phosphatase 92 U/L (38-126); Aspartate Aminotransferase 22 IU/L (14-36); BUN Creatinine Ratio 10.4 (6-22); Bilirubin Total 0.3 mg/dL (0.2-1.3); Blood Urea Nitrogen 5 mg/dL (7-17); Calcium 8.8 mg/dL (8.4-10.2); Carbon Dioxide 26 mmol/L (22-32); Chloride 104 mmol/L (98-107); Estimated Glomerular Filt Rate > 60 mL/min (>60); Globulin 3.1 g/dL (1.7-4.1); Glucose 83 mg/dL (70-100); HEMOLYSIS < 15 (0-50); Potassium 3.9 mmol/L (3.4-5.1); Sodium 137 mmol/L (137-145); Total Protein 6.6 g/dL (6.3-8.2)
[2022-05-19 15:06] LABS: Free T4, Direct Thyroxine 1.11 ng/dL (0.78-2.19)
[2022-05-19 15:20] LABS: Thyroid Stimulating Hormone 1.22 uIU/mL (0.47-4.68)
[2022-05-19 17:00] LABS: Hepatitis B Surface Antigen NEGATIVE s/c (NEGATIVE); Rubella Antibody IgG 58.2 IU/mL (>15)
[2022-05-19 17:14] LABS: Hep C Virus Ab w/Reflex Quant NEGATIVE s/c (NEGATIVE)
[2022-05-21 07:51] LABS: RPR Screen Non Reactive (Non Reactive)
[2022-05-21 14:08] LABS: Var-Zoster Immunity Screen 815 index (Immune >165)
== END ==
PROVIDERS: PCP Nurse Practitioner Family; Referring Provider Advanced Practice Midwife; Visit Provider Advanced Practice Midwife
DX: Z36.89 Encounter for other specified antenatal screening (principal); O09.32 Supervision of pregnancy with insufficient antenatal care, second trimester; O09.72 Supervision of high risk pregnancy due to social problems, second trimester; O09.92 Supervision of high risk pregnancy, unspecified, second trimester; O99.282 Endocrine, nutritional and metabolic diseases complicating pregnancy, second trimester; E07.9 Disorder of thyroid, unspecified; Z3A.21 21 weeks gestation of pregnancy; Z87.59 Personal history of other complications of pregnancy, childbirth and the puerperium
CPT/HCPCS: 36415; 76811; 80053; 83036; 84439; 84443; 85025; 86592; 86762; 86787; 86803; 86900; 86901; 87086; 87340

== ENCOUNTER → 2022-08-12 09:16 | Outpatient (CLI) | payer OTHER, MEDICAID, SELFPAY ==
[2022-08-12 10:33] LABS: Glucose Fasting 75 mg/dL (70-100)
[2022-08-12 11:39] LABS: Glucose 1 Hour 114 mg/dL (70-170)
[2022-08-12 12:40] LABS: Glucose 2 Hour 57 mg/dL (70-140)
[2022-08-12 19:45] LABS: Glucose Tol Interpretation INTERPRETATION
[2022-08-12 19:46] LABS: Glucose 3 Hour 57 mg/dL (70-115)
== END ==
PROVIDERS: PCP Nurse Practitioner Family; Referring Provider Advanced Practice Midwife; Visit Provider Advanced Practice Midwife
DX: O99.810 Abnormal glucose complicating pregnancy (principal); O09.93 Supervision of high risk pregnancy, unspecified, third trimester; Z3A.00 Weeks of gestation of pregnancy not specified
CPT/HCPCS: 36415; 82951; 82952

== ENCOUNTER 2022-10-08 19:44 | Emergency (ER) | payer OTHER, MEDICAID, SELFPAY ==
[2022-10-08 19:48] VITALS: BP 135/78; PULSE 82; RESP 18; TEMP 37.1; O2SAT 98
--- NOTE | 2022-10-08 19:56 | DI.RAD.S_ITS ---
PROCEDURE: XR ACUTE ABDOMEN SERIES INDICATIONS: no BM TECHNIQUE: One view chest and two views of the abdomen were acquired. COMPARISON: [facility], CR, XR CHEST 1 VIEW, 09/22/2019, 1:08. FINDINGS: Surgical changes and devices: None. Chest: Lungs are clear. Heart size is normal. No pleural effusions. No pneumoperitoneum. Abdomen: Bowel gas pattern is normal. There is a large amount of stool in colon. No suspicious calcifications. Visualized solid organ contours appear normal. Bones: No suspicious bony lesions. IMPRESSION: Large amount of stool in colon. Dictated by: Tigre Garcia M.D. on 10/08/2022 at 20:29 Approved by: Tigre Garcia M.D. on 10/08/2022 at 20:31
--- NOTE | 2022-10-08 20:44 | ED_ITS ---
HPI - Abdominal Pain General Chief Complaint: Abdominal Pain Stated Complaint: fecal impaction x2 weeks Time Seen by Provider: 10/08/22 19:50 Source: patient Mode of arrival: Ambulatory History of Present Illness HPI narrative: 27-year-old female smoker presents with a chief complaint of abdominal cramping and decreased bowel movements over the past 2 weeks. She recently had a C- section and successful delivery of a child. She does have a history of prior fecal impaction. She has not been taking any stool softeners. She states that she has been continuing to pass gas, she has occasional nausea but denies any vomiting. Her pain is crampy and absent of any obvious provocation or palliation. She has no fever or chills. Related Data Home Medications Medication Instructions Recorded Confirmed bupropion HCl 300 mg 24 hr tablet, 300 mg PO QAM 09/18/17 02/01/20 extended release (Wellbutrin XL) Previous Rx's Medication Instructions Recorded ondansetron 4 mg disintegrating 4 mg PO Q6HR PRN nausea and 02/07/20 tablet vomiting #10 tabs Allergies Allergy/AdvReac Type Severity Reaction Status Date / Time nickel AdvReac Rash Verified 08/12/21 09:00 Review of Systems Review of Systems Narrative: GENERAL: Denies chills, fatigue, malaise, fever, sweats. HEENT: Denies sinus pain, ear pain, sore throat, difficulty swallowing, dizziness. RESPIRATORY: Denies dyspnea, cough, wheezing, hemoptysis, sputum. CARDIOVASCULAR: Denies chest pain, palpitations, orthopnea, edema, GASTROINTESTINAL: See HPI : Denies dysuria, frequency, incontinence, hematuria, urinary retention. MUSCULOSKELETAL: denies weakness, joint pain, or bony pain SKIN: Denies rash, skin lesions, or other NEUROLOGIC: Denies weakness, headache, numbness, change in speech, confusion, seizures, incoordination. PSYCHIATRIC: No concerning psychosocial issues. 12 point review of systems is negative except for those stated above Patient History Medical History Fibromyalgia Fibromyalgia Social History Smoking Status: Current every day smoker Smoking Status: Current every day smoker tobacco type: cigarettes and vaping alcohol intake frequency: holidays/special occasions only Substance Use Type: does not use Exam Narrative Exam Narrative: GENERAL: [27] year old patient appears stated age. Well-developed patient, in mild distress. HEAD: Atraumatic. Normocephalic. EYES: Pupils equal round and reactive. Extraocular motions intact. No scleral icterus. No injection or drainage. ENT: Nose without bleeding, purulent drainage. Throat without erythema, tonsillar hypertrophy or exudate. Airway patent. NECK: Trachea midline. Non tender CARDIOVASCULAR: Regular rate and rhythm without murmurs, gallops, or rubs. RESPIRATORY: Clear to auscultation. Breath sounds equal bilaterally. No wheezes, rales, or rhonchi. GASTROINTESTINAL: Abdomen soft, non-tender, nondistended. Bowel sounds present, though decreased RECTAL: Firm stool at upper reaches of rectal vault, unable to manually dis impact. Performed with patient permission and female nursing career transition specialist at bedside. EXTREMITIES: No edema or joint tenderness. BACK: Nontender without deformity or crepitance. No flank tenderness. NEURO: AOx3. SKIN: No rash or erythema of visible areas Initial Vital Signs Initial Vital Signs: Vital Signs Temperature 98.7 F 10/08/22 19:48 Pulse Rate 82 10/08/22 19:48 Respiratory Rate 18 10/08/22 19:48 Blood Pressure 135/78 10/08/22 19:48 Pulse Oximetry 98 10/08/22 19:48 Oxygen Delivery Method Room Air 10/08/22 19:48 Course Orders Ordered: ED Orders 10/08/22 19:56 XR acute abdomen series Stat Discontinued Medications Bisacodyl (Bisacodyl 10 Mg Supp) 10 mg ID NOW ONE Stop: 10/08/22 22:38 Last Admin: 10/08/22 22:44 Dose: 10 mg Documented By: Vital Signs Vital signs: Vital Signs - 8 hr 10/08/22 19:48 10/08/22 23:07 Temperature 98.7 F Pulse Rate 82 67 Respiratory Rate 18 16 Blood Pressure 135/78 113/69 Pulse Oximetry 98 97 Oxygen Delivery Method Room Air Room Air MDM - Abdominal Pain MDM Narrative Medical decision making narrative: [27] year old patient presents with constipation Multiple etiologies for patient's symptoms considered including, but not limited to: [constipation vs. bowel obstruction vs. fecal impaction vs. other] Prior Charts reviewed in our EMR Primary Historian: patient Imaging reviewed: no signs of obstruction History and physical are reassuring. NO evidence of obstruction. Unable to manually disimpact, extensive discussion with patient regarding staying well-h ydrated, continuing to eat, daily use of stool softeners Findings and discharge diagnosis discussed with patient/family followed by verbalization of understanding Return precautions discussed with patient/family whom verbalize understanding of diagnosis and plan Discharge Plan Departure Patient Disposition: Home Clinical Impression: Constipation Instructions: DI for Constipation Activity Restrictions/Additional Instructions: *You have been diagnosed with [ abdominal pain due to constipation ] *What to do: *Take over the counter medications as directed: 1. Metamucil - is a bulk forming laxative and adds fiber 2. Colace - softens your stool 3. Dulcolax suppository - stimulates your bowels *Follow up with your primary care provider in 2-3 days, call for appointment *Return to ER if you should have any new, worsening or concerning symptoms *Drink plenty of water and eat foods high in fiber *Stay as active as you can as this helps move your bowels as well Prescriptions: No Action ondansetron 4 mg tablet,disintegrating 4 mg PO Q6HR PRN (Reason: nausea and vomiting) Qty: 10 0RF bupropion HCl [Wellbutrin XL] 300 mg Tablet Extended Release 24 Hr 300 mg PO QAM Referrals: Olga Byrd ARNP [Primary Care Provider] - Stand Alone Forms: Patient Portal/API
[2022-10-08] MEDS: BISACODYL 10 MG SUPP PR (22:44)
[2022-10-08 23:07] VITALS: BP 113/69; PULSE 67; RESP 16; O2SAT 97
== END 2022-10-08 23:09 | disposition home or self-care (01) ==
PROVIDERS: Emergency Provider Emergency Medicine; PCP Nurse Practitioner Family
DX: R10.9 Unspecified abdominal pain (principal); K59.00 Constipation, unspecified
CPT/HCPCS: 74022; 99283

== ENCOUNTER 2023-02-09 11:05 | Emergency (ER) | payer OTHER, MEDICAID, SELFPAY ==
[2023-02-09 11:20] VITALS: BP 110/58; PULSE 108; RESP 18; TEMP 37.2; O2SAT 97; BMI 46.0
--- NOTE | 2023-02-09 12:07 | ED.URI ---
HPI - URI/Sore Throat General Chief Complaint: Upper Respiratory Symptoms Stated Complaint: poss covid+ Time Seen by Provider: 02/09/23 11:28 Source: patient Mode of arrival: Ambulatory Limitations: no limitations History of Present Illness HPI Narrative: 27-year-old history of tobacco use on chronic methadone and gabapentin with complaint of subjective fevers, nasal congestion, generalized body aches with some mild nausea but no vomiting. Patient denies any chest pain or shortness of breath. No productive cough. She states she felt nauseated earlier but not currently. Denies any vomiting. Denies any diarrhea or constipation. No dysuria urgency or frequency. Patient states no rash or skin changes. She is . States she is on her methadone and gabapentin but no other daily medications. Does vape tobacco, does not smoke cigarettes. Denies any alcohol, marijuana or other ingestions. Related Data Home Medications Medication Instructions Recorded Confirmed bupropion HCl 300 mg 24 hr tablet, 300 mg PO QAM 09/18/17 02/01/20 extended release (Wellbutrin XL) Previous Rx's Medication Instructions Recorded ondansetron 4 mg disintegrating 4 mg PO Q6HR PRN nausea and 02/07/20 tablet vomiting #10 tabs Allergies Allergy/AdvReac Type Severity Reaction Status Date / Time nickel AdvReac Rash Verified 08/12/21 09:00 Review of Systems Review of Systems ROS Unobtainable: All systems reviewed & are unremarkable except as noted in HPI and below Patient History Medical History Fibromyalgia Fibromyalgia Social History Smoking Status: Current every day smoker Smoking Status: Current every day smoker tobacco type: cigarettes and vaping alcohol intake frequency: holidays/special occasions only Substance Use Type: does not use Exam Narrative Exam Narrative: GEN: BMI of 46 well appearing female, alert and oriented x 3, patient appears to be in mild distress. HEENT: Atraumatic, pupils are equal round reactive to light, extraocular movements are intact, mild bilateral rhinorrhea, TMs are clear with no fluid, there is no conjunctival pallor. Throat is clear without any exudates, erythema, tonsillar enlargement or uvular deviation HEART: Regular rate and rhythm without murmur, clicks, rubs. LUNGS:Lungs clear to auscultation, no wheezes, rales, crackles, chest moves symmetrically, ABD:bowel sounds normal, soft, non-tender, no guarding, rebound, rigidity, no masses noted, no hepatosplenomegaly MSCL: Non-tender, no muscle atrophy, muscles strength 5/5 upper and lower extremities, full range of motion, normal gait NEURO:CN 2-12 intact, sensation normal. Initial Vital Signs Initial Vital Signs: Vital Signs Temperature 98.9 F 02/09/23 11:20 Pulse Rate 108 H 02/09/23 11:20 Respiratory Rate 18 02/09/23 11:20 Blood Pressure 110/58 L 02/09/23 11:20 Pulse Oximetry 97 02/09/23 11:20 Oxygen Delivery Method Room Air 02/09/23 11:20 Course Orders Ordered: Discontinued Medications Acetaminophen (Acetaminophen 325 Mg Tablet) 975 mg PO NOW ONE Stop: 02/09/23 12:40 Last Admin: 02/09/23 13:12 Dose: 975 mg Documented By: SPF Vital Signs Vital signs: Vital Signs - 8 hr 02/09/23 11:20 02/09/23 14:10 02/09/23 14:19 Temperature 98.9 F 98.5 F Pulse Rate 108 H 99 H Respiratory Rate 18 20 Blood Pressure 110/58 L 114/73 Pulse Oximetry 97 96 Oxygen Delivery Method Room Air Room Air MDM - URI/Sore Throat MDM Narrative Medical decision making narrative: Well-appearing 28-year-old female slightly tachycardic otherwise appropriate vitals. Patient and her both have symptoms consistent with upper respiratory infection. Child has been swab was respiratory panel. This showed positive for COVID, parainfluenza as well as entero/rhino. Discussed with patient she likely has more similar organisms causing her symptoms. Discharge Plan Departure Patient Disposition: Home Clinical Impression: Upper respiratory infection Activity Restrictions/Additional Instructions: Please follow-up if your symptoms are persistent beyond a week or 10 days. You can take Tylenol up to a 1000 mg every 6 hours and/or ibuprofen up to 600 mg every 6 hours. You can take these medications with methadone and gabapentin, they are also both safe for . Please return if worsening symptoms new chest pain, shortness of breath, persistent vomiting, lightheadedness or passing out other rash or skin changes or other new or concerning changes. Prescriptions: No Action ondansetron 4 mg tablet,disintegrating 4 mg PO Q6HR PRN (Reason: nausea and vomiting) Qty: 10 0RF bupropion HCl [Wellbutrin XL] 300 mg Tablet Extended Release 24 Hr 300 mg PO QAM Referrals: Olga Byrd ARNP [Primary Care Provider] - Stand Alone Forms: Patient Portal/API
--- NOTE | 2023-02-09 12:20 | PC.NURSE ---
Pt woke up today feeling like she has the flu and wanted to get checked out along with her son who has had a fever. Pt states she does not currently have adult tylenol\ibuprofen at home. Pt was nauseous at triage but now denies having nausea.
[2023-02-09] MEDS: ACETAMINOPHEN 325 MG TABLET 975 MG PO (13:12)
[2023-02-09 14:10] VITALS: BP 114/73; PULSE 99; RESP 20; O2SAT 96
[2023-02-09 14:19] VITALS: TEMP 36.9
== END 2023-02-09 14:20 | disposition home or self-care (01) ==
PROVIDERS: Emergency Provider Emergency Medicine; PCP Nurse Practitioner Family
DX: J06.9 Acute upper respiratory infection, unspecified (principal); F17.200 Nicotine dependence, unspecified, uncomplicated
CPT/HCPCS: 99282; 99283

== ENCOUNTER 2023-03-18 15:48 | Emergency (ER) | payer OTHER, MEDICAID, SELFPAY ==
[2023-03-18 16:09] VITALS: BP 129/73; PULSE 110; RESP 18; TEMP 37; O2SAT 98; BMI 46.0
[2023-03-18 16:36] LABS: Strep Grp A by PCR Rapid Positive (Negative)
--- NOTE | 2023-03-18 16:43 | ED.URI ---
HPI - URI/Sore Throat General Chief Complaint: Upper Respiratory Symptoms Stated Complaint: Swollen Tonsils, fever, hurts to swallow Time Seen by Provider: 03/18/23 16:32 Source: patient Mode of arrival: Ambulatory History of Present Illness HPI Narrative: 28-year-old female presented emergency room with sore throat for last 3 days, there has been mild subjective fever, there is swollen tonsil, having difficulty swallowing because of the pain, no complain of nausea vomiting, mild upper respiratory symptoms including cough congestion. There is no respiratory distress. No other sick contact. Related Data Home Medications Medication Instructions Recorded Confirmed bupropion HCl 300 mg 24 hr tablet, 300 mg PO QAM 09/18/17 02/01/20 extended release (Wellbutrin XL) Previous Rx's Medication Instructions Recorded ondansetron 4 mg disintegrating 4 mg PO Q6HR PRN nausea and 02/07/20 tablet vomiting #10 tabs penicillin V potassium 500 mg 500 mg PO QID 10 days #40 tabs 03/18/23 tablet Allergies Allergy/AdvReac Type Severity Reaction Status Date / Time nickel AdvReac Rash Verified 03/18/23 16:09 Review of Systems Review of Systems Narrative: All systems negative except what is dictated in HPI Patient History Medical History Fibromyalgia Fibromyalgia Social History Smoking Status: Current every day smoker Smoking Status: Current every day smoker tobacco type: cigarettes and vaping alcohol intake frequency: holidays/special occasions only Substance Use Type: does not use Exam Narrative Exam Narrative: GENERAL: [28] year old patient appears stated age. Well-developed patient, in mild distress because of sore throat. HEAD: Atraumatic. Normocephalic. EYES: Pupils equal round and reactive. Extraocular motions intact. No scleral icterus. No injection or drainage. ENT: Nose without bleeding, purulent drainage. Throat has erythema without petechiae, tonsillar hypertrophy erythema and mild exudate. Airway patent. NECK: Trachea midline. Non tender CARDIOVASCULAR: Regular rate and rhythm without murmurs, gallops, or rubs. RESPIRATORY: Clear to auscultation. Breath sounds equal bilaterally. No wheezes, rales, or rhonchi. GASTROINTESTINAL: Abdomen soft, non-tender, nondistended. EXTREMITIES: No edema or joint tenderness. BACK: Nontender without deformity or crepitance. No flank tenderness. NEURO: AOx3. SKIN: No rash or erythema of visible areas Initial Vital Signs Initial Vital Signs: Vital Signs Temperature 98.6 F 03/18/23 16:09 Pulse Rate 110 H 03/18/23 16:09 Respiratory Rate 18 03/18/23 16:09 Blood Pressure 129/73 03/18/23 16:09 Pulse Oximetry 98 03/18/23 16:09 Oxygen Delivery Method Room Air 03/18/23 16:09 Course Orders Ordered: ED Orders 03/18/23 16:23 Strep Grp A by PCR Rapid Stat Throat Culture Stat 03/18/23 16:32 Strep Screen Stat 03/18/23 16:33 Covid-19 + FLU A/B + RSV - PCR Stat Discontinued Medications Ibuprofen (Ibuprofen Susp 100 Mg/5 Ml Udc) 800 mg PO NOW ONE Stop: 03/18/23 16:39 Penicillin V Potassium (Penicillin Vk 250 Mg Tablet) 500 mg PO NOW ONE Stop: 03/18/23 16:40 Vital Signs Vital signs: Vital Signs - 8 hr 03/18/23 16:09 Temperature 98.6 F Pulse Rate 110 H Respiratory Rate 18 Blood Pressure 129/73 Pulse Oximetry 98 Oxygen Delivery Method Room Air MDM - URI/Sore Throat Lab Data Labs: Lab Results 03/18/23 Range/Units 16:23 Group A Strep (PCR) Positive H (Negative) MDM Narrative Medical decision making narrative: 28-year-old female presented emergency room with sore throat for last 3 days, there has been mild subjective fever, there is swollen tonsil, having difficulty swallowing because of the pain, no complain of nausea vomiting, mild upper respiratory symptoms including cough congestion. There is no respiratory distress. No other sick contact. Based on my interview differential diagnosis includes strep pharyngitis, viral pharyngitis, COVID-19 infection and other viral infection. The patient is agreeable to have swab for bacteria strep and viral. Given impression of positive strep pharyngitis and start 1st dose of penicillin VK 500 mg in emergency room. Asked to continue and complete a course of 500 mg q.i.d. for the next 10 days, gargle salt water as needed for pain, take Tylenol or ibuprofen for pain as needed. She is otherwise stable at time of discharge with her infant Discharge Plan Departure Patient Disposition: Home Clinical Impression: Acute streptococcal pharyngitis Instructions: DI for Strep Throat Activity Restrictions/Additional Instructions: Gargle salt water as needed for pain control, take Tylenol ibuprofen for pain and fever. Complete the course of penicillin VK Prescriptions: New penicillin V potassium 500 mg tablet 500 mg PO QID 10 Days Qty: 40 0RF No Action ondansetron 4 mg tablet,disintegrating 4 mg PO Q6HR PRN (Reason: nausea and vomiting) Qty: 10 0RF bupropion HCl [Wellbutrin XL] 300 mg Tablet Extended Release 24 Hr 300 mg PO QAM Referrals: Olga Byrd ARNP [Primary Care Provider] - Stand Alone Forms: Patient Portal/API
[2023-03-18] MEDS: PENICILLIN VK 250 MG TABLET 500 MG PO (16:58)
[2023-03-18] MEDS: IBUPROFEN SUSP 100 MG/5 ML UDC 800 MG PO (16:59)
== END 2023-03-18 17:37 | disposition home or self-care (01) ==
PROVIDERS: Emergency Provider Emergency Medicine Emergency Medical Services; PCP Nurse Practitioner Family
DX: J02.0 Streptococcal pharyngitis (principal)
CPT/HCPCS: 87651; 99283

== ENCOUNTER → 2025-01-16 16:41 | Outpatient (CLI) | payer OTHER, MEDICAID, SELFPAY ==
--- NOTE | 2025-01-16 16:43 | DI.RAD.S_ITS ---
PROCEDURE: XR FOOT RT MIN 3V INDICATIONS: Rule out fracture lateral ankle forefoot TECHNIQUE: 3 views of the foot were acquired. COMPARISON: [facility], CR, XR ANKLE RT MIN 3V, 01/16/2025, 16:44. FINDINGS: Bones: No fractures or dislocations. No suspicious bony lesions. Soft tissues: No tibiotalar joint effusion. Achilles tendon appears normal. IMPRESSION: No acute bony abnormality. Dictated by: Torey Martinez M.D. on 01/16/2025 at 17:35 Approved by: Torey Martinez M.D. on 01/16/2025 at 17:36
--- NOTE | 2025-01-16 16:43 | DI.RAD.S_ITS ---
PROCEDURE: XR ANKLE RT MIN 3V INDICATIONS: Rule out fracture lateral ankle forefoot TECHNIQUE: 3 views of the ankle were acquired. COMPARISON: [facility], CR, XR FOOT RT MIN 3V, 01/16/2025, 16:44. [facility], CR, XR ANKLE RT MIN 3V, 09/18/2017, 18:28. FINDINGS: Bones: No fractures or dislocations. Ankle mortise is normally aligned. No suspicious bony lesions. Soft tissues: No tibiotalar joint effusion. Achilles tendon appears normal. IMPRESSION: No acute bony abnormality or significant effusion. Dictated by: Torey Martinez M.D. on 01/16/2025 at 17:33 Approved by: Torey Martinez M.D. on 01/16/2025 at 17:35
== END ==
PROVIDERS: PCP Nurse Practitioner Family; Referring Provider Chiropractor; Visit Provider Chiropractor
DX: S93.401A Sprain of unspecified ligament of right ankle, initial encounter (principal); M79.671 Pain in right foot; X58.XXXA Exposure to other specified factors, initial encounter
CPT/HCPCS: 73610; 73630